=== PATIENT | male | born 1970 | race Caucasian/White ===

== ENCOUNTER → 2024-01-30 16:57 | Outpatient (REF) | payer BC, SELFPAY | LOC: RAD 16:57 | PROVIDERS: ATTENDING PHYSICIAN Surgery; FAMILY PHYSICIAN Internal Medicine | DX: N20.0 Calculus of kidney (principal) | CPT/HCPCS: 74176 ==

== ENCOUNTER 2024-06-03 14:17 | Emergency (ER) | payer BC, SELFPAY ==
[2024-06-03 14:25] VITALS: BP 191/135; BMI 36.0
--- NOTE | 2024-06-03 14:40 | EDRN ---
Dr. Villarreal in room w/ pt at this time.
--- NOTE | 2024-06-03 15:03 | ED.GENMED ---
History of Present Illness
General
Chief Complaint: Flank Pain
Source: patient
Exam Limitations: none
Time Seen by Provider: 06/03/24 14:39
History of Present Illness
History of Present Illness:
Left-sided flank pain x 3 days. History of kidney stones. Feels like a kidney stone. However it is not usually tender in the left lower quadrant. No fever chills no other infectious issues.
Past History
Past History
ED Past Medical History: HTN, Hypercholesterolemia and Other (kidney stones); Negative Arrthythmia, Asthma or CAD
ED Past Surgical History: Urological (lithrotripsy, ureteral stent July 2015)
Social History
Tobacco: Smoker
Alcohol: Occasional
Drug: None
Personal:
Living: with family
Employment: Employed
Family History
Family History: Hypertension and CAD; Negative Early CAD
Review of Systems
Review of Systems
All Other Systems: Not applicable
Constitutional: Denies fever or chills
: Denies dysuria or frequency
Phy Exam
Physical Exam
Physical Exam:
GENERAL: Alert and oriented in no apparent distress
EYE: Orbits normal.
NECK: Supple
CARDIAC: Regular rate and rhythm without any obvious murmurs.
LUNGS: Clear breath sounds,normal
ABDOMEN: Soft, mild tenderness left lower quadrant. No rebound or guarding no mass or hernia. No CVA tenderness
NEUROLOGICAL: Alert and oriented , grossly non-focal
SKIN: Warm and dry, no rash or lesion, no discoloration, skin intact.
MUSCULOSKELETAL: No edema,no deformity.Good color
PSYCH: Normal and appropriate interaction.
Course
Orders/Labs/Results
Orders:
Orders
06/03/24 14:50
IV Insert/Care/Rem.- Treatment PRN
0.9% Sodium Chloride 500 ml [Nss] 500 ml IV BOLUS
Ketorolac [Toradol] 15 mg IV NOW STA
06/03/24 14:51
HYDROmorphone [Dilaudid] 0.5 mg IV NOW STA
06/03/24 15:00
CT Abd/pel Without Iv Or Oral Urgent
Comment:
Reason For Exam: Left flank pain
06/03/24 15:03
Acetaminophen 1000MG/100Ml [Ofirmev] 1,000 mg in 100 ml IV ONCE
Acetaminophen IV Indication:: ED Narcotic Naive Pt-ONCE
06/03/24 15:16
Basic Metabolic Panel Urgent
Complete Blood Count/With Diff Urgent
06/03/24 15:33
Urinalysis Reflex To Culture Urgent
Date Specimen was Collected: 06/03/24
Time Specimen was Collected: 15:17
Urine Microscopic Reflex Cult Urgent
06/03/24 17:57
HYDROmorphone [Dilaudid] 0.5 mg IV NOW STA
06/03/24 17:58
CR Abdomen - 1 View Urgent
Comment:
Reason For Exam: Known mid ureteral stone
Abnormal Lab Results
06/03/24 06/03/24
15:16 15:33
MCH 31.7 H pg
(27.0-31.0)
MCHC 37.4 H g/dL
(33.0-37.0)
MPV 10.9 H fL
(7.4-10.4)
Abs Immat Gran (auto) 0.1 H 10^3/uL
(0-0.05)
Absolute Neuts (auto) 6.8 H 10^3/uL
(1.4-6.5)
Absolute Monos (auto) 0.7 H 10^3/uL
(0.1-0.6)
Immature Gran % 0.9 H %
(0-0.5)
Lymphocytes % 18.8 L %
(20.5-51.1)
Sodium 131 L mmol/L
(135-145)
BUN 21 H mg/dl
(9-20)
Glucose 326 H mg/dl
(70-99)
Ur Occult Blood Reflex 3+ A
(Negative)
Urine RBC >100 A /HPF
(0-2)
Urine Glucose 1+ A
(Negative)
06/03/24 15:16
06/03/24 15:16
Vital Signs
Initial and Last Documented VS:
Initial Vital Signs
Temp Pulse Resp BP Pulse Ox
97.9 F 82 16 191/135 96
06/03/24 14:25 06/03/24 14:25 06/03/24 14:25 06/03/24 14:25 06/03/24 14:25
Last Documented Vital Signs
Temp Pulse Resp BP Pulse Ox
97.9 F 58 16 183/101 97
06/03/24 14:25 06/03/24 18:00 06/03/24 18:00 06/03/24 18:23 06/03/24 18:00
*Radiology
Radiology exam reviewed: radiology read reviewed (Ongoing ectopic left adnexa) and other (1.2 cm obstructing stone with severe hydronephrosis)
*Pulse Oximetry
Patient hypoxic: no
*Critical Care Note
Total Time (30-74mins, 75-104mins- exclusive of procedures): Not Applicable
Update Note
Update Note:
Likely kidney stone however would consider diverticulitis. Workup in progress. Doubt infectious urologic issue
1825.... Patient is clinically stable and in no distress. Last blood pressure 183/101. No infectious symptoms. No fever no white count negative urinalysis for nitrate or leukocyte Estrace. CT report sent to urology. Patient is comfortable with
close outpatient follow-up. Urology is aware and will have him follow-up closely tomorrow. Patient will also be made of his blood sugar for follow-up
ED Attending Note
-
Portions of this chart may have been created with voice recognition software.� Occasional wrong word or��sound alike� substitutions may have occurred due to the inherent limitations of voice recognition software.
Discharge Plan
Departure
Patient Disposition: Home (Routine Discharge)
Date of Disposition: 06/03/24
Time of Disposition: 15:04
Patient with high blood pressure during this ER visit?: Yes
Discharge Problem:
1.2 cm left ureteral obstructing kidney
Instructions: Kidney Stones (DC), BLOOD PRESSURE
Prescriptions:
New
oxycodone-acetaminophen [Percocet] 5-325 mg tablet
1 tab PO Q4HPRN PRN (Reason: pain) Qty: 14 0RF
No Action
lisinopril 20 MG tablet
20 mg PO DAILY
allopurinol 100 MG tablet
100 mg PO BID
acetaminophen-codeine 300-30 mg Tablet
1 tab PO .SEE BELOW PRN (Reason: severe pain)
Patient Comments:
06/03/24: last filled 08/08/23 for 10 tablets at [facility]. Patient states he used an old bottle.
aspirin 81 mg Tablet,Delayed Release (Dr/Ec)
81 mg PO DAILY
ciclopirox 0.77 % Cream
1 applic TOPICAL BID
potassium citrate 15 mEq Tablet Extended Release
15 meq PO DAILY
Patient Comments:
06/03/24: patient states he is supposed to take it twice a day, but only does once a day in the morning.
Referrals:
Denise Ortega MD [Family Provider] -
Chase Barron MD [Active] - Tomorrow
Activity Restrictions/Additional Instructions:
Your prescription was sent to your pharmacy
As we discussed, call your urologist first thing tomorrow morning for very close follow-up
Also as discussed return with increasing or unremitting pain or any infectious symptoms
Interventions
Interventions:
*Risk Screen - Suicide Last Done: 06/03/24 14:25
*General Assessment Last Done: 06/03/24 15:20
*Neglect/Abuse Screening Last Done: 06/03/24 14:25
ED- Fall Risk Assessment Last Done: 06/03/24 14:25
*ED COVID-19 Vaccine History Last Done: 06/03/24 15:20
*Nursing Disposition Last Done: 06/03/24 18:44
LT-Ercwnb-Fqbiedgkth Assessment Last Done: 06/03/24 15:20
ED-Male Genitourinary Assessment Last Done: 06/03/24 15:20
Discharge Date and Time
Discharge Date/Time: 06/03/24 18:45
Print Language: [place]
[2024-06-03 15:20] VITALS: BP 197/100
[2024-06-03] MEDS: NSS 500 IV (15:25)
[2024-06-03] MEDS: DILAUDID 0.5 MG IV (15:26)
[2024-06-03] MEDS: TORADOL 15 MG IV (15:27)
[2024-06-03] MEDS: OFIRMEV 100 IV (15:28)
[2024-06-03 15:30] LABS: % Basophils 0.6 % (0-2); % Eosinophils 1.9 % (0-6); % Immature Granulocytes 0.9 % (0-0.5); % Lymphocytes 18.8 % (20.5-51.1); % Monocytes 7.2 % (1.7-9.3); % Neutrophils 70.6 % (42.2-75.2); Absolute Basophils 0.1 10^3/uL (0-0.2); Absolute Eosinophils 0.2 10^3/uL (0-0.7); Absolute Immature Granulocytes 0.1 10^3/uL (0-0.05); Absolute Lymphocytes 1.8 10^3/uL (1.2-3.4); Absolute Monocytes 0.7 10^3/uL (0.1-0.6); Absolute Neutrophils 6.8 10^3/uL (1.4-6.5); Hematocrit 40.4 % (39.0-52.0); Hemoglobin 15.1 g/dL (13.0-18.0); Mean Corp Hgb Conc. 37.4 g/dL (33.0-37.0); Mean Corpuscular Hgb 31.7 pg (27.0-31.0); Mean Corpuscular Volume 84.7 fL (80.0-94.0); Mean Platelet Volume 10.9 fL (7.4-10.4); Nucleated Red Blood Cells % 0 % (-); Platelet Count 148 10^3/uL (130-400); Red Blood Cell Count 4.77 10^6/uL (4.70-6.10); Red Cell Dist. Width 12.4 % (11.5-14.5); White Blood Cell Count 9.6 10^3/uL (4.8-10.8)
[2024-06-03 15:48] LABS: Blood Urea Nitrogen 21 mg/dl (9-20); Estimated Creatinine Clearance 90 ml/min; Glucose 326 mg/dl (70-99); eGFR > 60.00
[2024-06-03 15:49] LABS: Urine Albumin Trace (Neg - Trace); Urine Bilirubin Negative (Negative); Urine Character Clear (Clear); Urine Color Yellow; Urine Glucose 1+ (Negative); Urine Ketone Negative (Negative); Urine Leukocyte Negative (Negative); Urine Nitrite Negative (Negative); Urine Occult Blood 3+ (Negative); Urine Specific Gravity 1.015 (<1.030); Urine Urobilinogen Negative (Neg - 1+); Urine pH 6.5 (5.0-9.0)
[2024-06-03 15:49] LABS: Carbon Dioxide 26 mmol/L (22-30); Chloride 98 mmol/L (98-107); Sodium 131 mmol/L (135-145)
[2024-06-03 16:00] VITALS: BP 191/97
[2024-06-03 16:03] LABS: Urine Red Blood Cell >100 /HPF (0-2); Urine Squamous Cell >30 /LPF (Few); Urine White Cell 0-2 /HPF (0-5)
[2024-06-03 17:00] VITALS: BP 160/101
--- NOTE | 2024-06-03 17:51 | EDRN ---
Dr. Villarreal in room w /pt at this time.
[2024-06-03 18:00] VITALS: BP 174/93
[2024-06-03 18:23] VITALS: BP 183/101
--- NOTE | 2024-06-03 18:23 | EDRN ---
Pt declined pain med at this time. pain only 1/10 at this time.
== END 2024-06-03 18:45 | disposition home or self-care (01) ==
LOC: EMR 14:17
PROVIDERS: EMERGENCY PHYSICIAN Emergency Medicine; FAMILY PHYSICIAN Internal Medicine
DX: N13.2 Hydronephrosis with renal and ureteral calculous obstruction (principal); I10 Essential (primary) hypertension; F17.200 Nicotine dependence, unspecified, uncomplicated
CPT/HCPCS: 99285; 96374; 96375 ×2; 96361; 74018; 74176; 80048; 81003; 81015; 85025

== ENCOUNTER 2024-06-07 06:38 | Day surgery (SDC) | payer BC, SELFPAY ==
--- NOTE | 2024-06-05 14:01 | PTCARENOTE ---
Vangie @ Dr. Craven office and Dr. Apple notified of patients 326 glucose collected on 06/03- Per Dr. pAple glucose to be repeated day of surgery
[2024-06-07] VITALS (7 sets, daily range): BP systolic 107–178; BP diastolic 76–116; BMI 35.2
[2024-06-07 15:01] LABS: Glucose - Point of Care 199 mg/dl (70-99)
[2024-06-07] MEDS: NORMOSOL-R/PLASMALYTE-A 1000 IV (15:09)
[2024-06-07 17:09] LABS: Glucose - Point of Care 183 mg/dl (70-99)
[2024-06-07] MEDS: DETROL LA 4 MG PO (17:09)
[2024-06-07] MEDS: Pyridium 200 MG PO (17:09)
[2024-06-07] MEDS: NOVOLOG vial 1 UNITS SC (17:13)
== END 2024-06-07 18:08 | disposition home or self-care (01) ==
LOC: SDS 06:38
PROVIDERS: ATTENDING PHYSICIAN Surgery
DX: N13.2 Hydronephrosis with renal and ureteral calculous obstruction (principal)
CPT/HCPCS: 52356; 74018; 76000; 82962; 93005; C1769; C1894; C2617

== ENCOUNTER 2024-06-11 10:15 | Emergency (ER) | payer BC, SELFPAY ==
[2024-06-11 10:17] VITALS: BP 140/81
--- NOTE | 2024-06-11 11:13 | ED.GENMED ---
History of Present Illness
General
Chief Complaint: Abdominal Pain
Source: patient
Time Seen by Provider: 06/11/24 10:55
History of Present Illness
History of Present Illness:
54yoM with a history of hypertension, hyperlipidemia, and kidney stones presenting with his for evaluation of abdominal pain. He reports recurrent episodes of epigastric pain. The first episode occurred 3 days ago. The pain initially went away
after he belched and had a bowel movement so he thought his symptoms were related to gas. He has had additional episodes over the past few days which are severe and sudden in onset. Nothing in particular seems to trigger the symptoms. He pain lasts
about 20 minutes before resolving. The episodes seem to occur in the morning time and while in the shower. He had an episode of severe pain today while at work and decided to come to the ED. He is pain free currently. The episodes are associated
with nausea and diaphoresis. He denies any fevers, chest pain, shortness of breath, dysuria, heartburn. Of note, patient had a lithotripsy with ureteral stent placement 4 days ago.
Past History
Past History
ED Past Medical History: HTN, Hypercholesterolemia and Other (kidney stones); Negative Arrthythmia, Asthma or CAD
ED Past Surgical History: Urological (lithrotripsy, ureteral stent July 2015)
Social History
Tobacco: Smoker
Alcohol: Occasional
Drug: None
Personal:
Living: with family
Employment: Employed
Family History
Family History: Hypertension and CAD; Negative Early CAD
Phy Exam
General Physical Exam
General Presentation: well appearing and no apparent distress
General age: appears stated age
General Skin: warm and dry
General Habitus: normal
General Mental: alert
Cardiovascular Exam
Cardiovascular Exam: regular rate/rhythm, no edema and no murmur
Pulmonary Exam
Pulmonary Exam: lungs clear, no respiratory distress, no crackles and no wheezing
Gastrointestinal Exam
Gastrointestinal Exam: non tender, soft and non distended
Skin Exam
Skin Exam: normal color and warm/dry
Psychiatric Exam
Psychiatric Exam: normal mood/affect
Course
Orders/Labs/Results
Orders:
Orders
06/11/24 11:18
Electrocardiogram (*1) Urgent
Reason for Study: Abdominal Pain
EKG- Treatment ONCE
06/11/24 11:19
CT Abd/pelvis W Iv Cont Urgent
Comment:
Reason For Exam: Epigastric pain, recent ureteral stent placement
06/11/24 11:27
Complete Blood Count/With Diff Urgent
Comprehensive Metabolic Panel Urgent
Lipase Urgent
Troponin I Urgent
Abnormal Lab Results
06/11/24
11:27
WBC 12.2 H 10^3/uL
(4.8-10.8)
MCH 31.7 H pg
(27.0-31.0)
MPV 10.7 H fL
(7.4-10.4)
Abs Immat Gran (auto) 0.1 H 10^3/uL
(0-0.05)
Absolute Neuts (auto) 9.0 H 10^3/uL
(1.4-6.5)
Absolute Monos (auto) 0.7 H 10^3/uL
(0.1-0.6)
Immature Gran % 0.9 H %
(0-0.5)
Lymphocytes % 17.4 L %
(20.5-51.1)
Sodium 133 L mmol/L
(135-145)
BUN 21 H mg/dl
(9-20)
Creatinine 1.4 H mg/dL
(0.7-1.3)
Glucose 395 H mg/dl
(70-99)
ALT 60 H U/L
(0-50)
06/11/24 11:27
06/11/24 11:27
Vital Signs
Initial and Last Documented VS:
Initial Vital Signs
Temp Pulse Resp BP Pulse Ox
98.0 F 82 18 140/81 97
06/11/24 10:17 06/11/24 10:17 06/11/24 10:17 06/11/24 10:17 06/11/24 10:17
Last Documented Vital Signs
Temp Pulse Resp BP Pulse Ox
98.0 F 71 16 135/74 97
06/11/24 10:17 06/11/24 14:08 06/11/24 14:08 06/11/24 14:08 06/11/24 14:08
MDM/Problems Addressed
Differential Diagnosis Includes:
54yoM here with intermittent epigastric pain x 3 days. Lasts 20 minutes at a time. Associated with nausea and sweating. Hx of recent ureteral stent placement. He is pain free currently. He is afebrile and hemodynamically stable. He is well appearing
in no distress. Abdominal exam is benign. Differential diagnosis includes but is not limited to: gastritis, GERD, esophagitis, ACS
Initial ED plan: Check abdominal labs, troponin/EKG, and CT abdomen.
*EKG
Interpreted by ED Provider?: Yes
EKG Intrepretation Date: 06/11/24
Heart Rate: 69
Rate: normal
Rhythm: sinus
[place]: normal axis
Interval: normal interval
QRS Pattern: normal QRS
Ischemia: no ischemia
*Critical Care Note
Total Time (30-74mins, 75-104mins- exclusive of procedures): Not Applicable
Update Note
Update Note:
Labs reveal a WBC of 12.2 which is nonspecific. Creatinine 1.4 (1.3 last week). Glucose 395, bicarb is normal. He denies any prior hx of diabetes although glucose was also elevated in the 300s during his ED visit last week. CT abdominal is negative
for acute findings. Hydronephrosis improved after stent placement. On reassessment, he remains asymptomatic. No episodes of pain during ED stay. No indication for admission. Unclear etiology of pain. Advised close f/u with PCP and cardiology.
Patient and aware of hyperglycemia. ED return precautions discussed. He was discharged in stable condition.
ED Attending Note
-
Portions of this chart may have been created with voice recognition software.� Occasional wrong word or��sound alike� substitutions may have occurred due to the inherent limitations of voice recognition software.
Discharge Plan
Departure
Patient Disposition: Home (Routine Discharge)
Date of Disposition: 06/11/24
Time of Disposition: 14:31
Patient with high blood pressure during this ER visit?: No
Discharge Problem:
Epigastric pain, Hyperglycemia
Instructions: Chest Pain DCA Follow Up, Abdominal Pain
Prescriptions:
No Action
lisinopril 20 MG tablet
20 mg PO DAILY
allopurinol 100 MG tablet
100 mg PO BID
acetaminophen-codeine 300-30 mg Tablet
1 tab PO .SEE BELOW PRN (Reason: severe pain)
Patient Comments:
06/03/24: last filled 08/08/23 for 10 tablets at [facility]. Patient states he used an old bottle.
aspirin 81 mg Tablet,Delayed Release (Dr/Ec)
81 mg PO DAILY
potassium citrate 15 mEq Tablet Extended Release
15 meq PO DAILY
Patient Comments:
06/03/24: patient states he is supposed to take it twice a day, but only does once a day in the morning.
tamsulosin 0.4 mg Capsule
0.4 mg PO DAILY
diclofenac sodium 50 mg Tablet,Delayed Release (Dr/Ec)
50 mg PO TID
methylprednisolone [Methylpred] 4 mg Tablets,Dose Pack
4 mg PO DAILY
Rx Instructions:
TAPER
Referrals:
Johnathon Santos MD [Active] -
Denise Ortega MD [Family Provider] -
Activity Restrictions/Additional Instructions:
Please call today to schedule a follow-up with your family doctor in 1-2 days. You should also follow up with your city mail carrier.
Return to the ER with any new or worsening symptoms.
Interventions
Interventions:
*Risk Screen - Suicide Last Done: 06/11/24 10:19
*General Assessment Last Done: 06/11/24 10:19
*Neglect/Abuse Screening Last Done: 06/11/24 10:19
ED- Fall Risk Assessment Last Done: 06/11/24 14:47
*ED COVID-19 Vaccine History Last Done: 06/11/24 10:19
*Nursing Disposition Last Done: 06/11/24 14:47
SP-Smrshp-Dryahhklvo Assessment Last Done: 06/11/24 11:06
Discharge Date and Time
Discharge Date/Time: 06/11/24 14:48
Print Language: [place]GAND[place]
[2024-06-11 11:35] LABS: % Basophils 0.9 % (0-2); % Eosinophils 1.5 % (0-6); % Immature Granulocytes 0.9 % (0-0.5); % Lymphocytes 17.4 % (20.5-51.1); % Monocytes 5.3 % (1.7-9.3); Absolute Basophils 0.1 10^3/uL (0-0.2); Absolute Eosinophils 0.2 10^3/uL (0-0.7); Absolute Immature Granulocytes 0.1 10^3/uL (0-0.05); Absolute Lymphocytes 2.1 10^3/uL (1.2-3.4); Absolute Monocytes 0.7 10^3/uL (0.1-0.6); Hematocrit 46.7 % (39.0-52.0); Hemoglobin 17.2 g/dL (13.0-18.0); Mean Corp Hgb Conc. 36.8 g/dL (33.0-37.0); Mean Corpuscular Hgb 31.7 pg (27.0-31.0); Mean Platelet Volume 10.7 fL (7.4-10.4); Nucleated Red Blood Cells % 0 % (-); Platelet Count 201 10^3/uL (130-400); Red Blood Cell Count 5.43 10^6/uL (4.70-6.10); Red Cell Dist. Width 12.2 % (11.5-14.5); White Blood Cell Count 12.2 10^3/uL (4.8-10.8)
[2024-06-11 11:49] LABS: ALT (SGPT) 60 U/L (0-50); AST (SGOT) 46 U/L (17-59); Albumin 4.3 g/dl (3.5-5.0); Alkaline Phosphatase 121 U/L (38-126); Blood Urea Nitrogen 21 mg/dl (9-20); Calcium 9.7 mg/dl (8.4-10.2); Carbon Dioxide 23 mmol/L (22-30); Chloride 100 mmol/L (98-107); Glucose 395 mg/dl (70-99); Lipase 94 U/L (23-300); Potassium 4.8 mmol/L (3.5-5.1); Sodium 133 mmol/L (135-145); Total Bilirubin 1.2 mg/dl (0.2-1.3); Total Protein 6.8 g/dl (6.3-8.2); eGFR 58.99
[2024-06-11 12:04] VITALS: BP 138/79
[2024-06-11 12:45] LABS: Troponin I < 0.012 ng/ml
[2024-06-11 14:08] VITALS: BP 135/74
== END 2024-06-11 14:48 | disposition home or self-care (01) ==
LOC: EMR 10:15
PROVIDERS: Physician Assistant; EMERGENCY PHYSICIAN Emergency Medicine; FAMILY PHYSICIAN Internal Medicine
DX: R10.13 Epigastric pain (principal); R11.0 Nausea; R73.9 Hyperglycemia, unspecified; R61 Generalized hyperhidrosis; I10 Essential (primary) hypertension; E78.00 Pure hypercholesterolemia, unspecified; F17.200 Nicotine dependence, unspecified, uncomplicated; Z98.890 Other specified postprocedural states; Z87.442 Personal history of urinary calculi; Z79.82 Long term (current) use of aspirin
CPT/HCPCS: 99285; 74177; 80053; 83690; 84484; 85025; 93005; Q9967

== ENCOUNTER → 2024-06-26 06:33 | Outpatient (REF) | payer BC, SELFPAY ==
[2024-06-26 09:06] LABS: % Basophils 0.8 % (0-2); % Eosinophils 2.8 % (0-6); % Immature Granulocytes 0.4 % (0-0.5); % Lymphocytes 30.1 % (20.5-51.1); % Monocytes 6.7 % (1.7-9.3); % Neutrophils 59.2 % (42.2-75.2); Absolute Basophils 0.1 10^3/uL (0-0.2); Absolute Eosinophils 0.2 10^3/uL (0-0.7); Absolute Lymphocytes 2.2 10^3/uL (1.2-3.4); Absolute Monocytes 0.5 10^3/uL (0.1-0.6); Absolute Neutrophils 4.4 10^3/uL (1.4-6.5); Hematocrit 41.9 % (39.0-52.0); Hemoglobin 14.6 g/dL (13.0-18.0); Mean Corp Hgb Conc. 34.8 g/dL (33.0-37.0); Mean Corpuscular Hgb 31.9 pg (27.0-31.0); Mean Corpuscular Volume 91.7 fL (80.0-94.0); Mean Platelet Volume 10.6 fL (7.4-10.4); Nucleated Red Blood Cells % 0 % (-); Platelet Count 189 10^3/uL (130-400); Red Blood Cell Count 4.57 10^6/uL (4.70-6.10); Red Cell Dist. Width 12.3 % (11.5-14.5); White Blood Cell Count 7.4 10^3/uL (4.8-10.8)
[2024-06-26 09:13] LABS: ALT (SGPT) 54 U/L (0-50); AST (SGOT) 44 U/L (17-59); Albumin 4.4 g/dl (3.5-5.0); Alkaline Phosphatase 93 U/L (38-126); Blood Urea Nitrogen 23 mg/dl (9-20); Carbon Dioxide 27 mmol/L (22-30); Chloride 104 mmol/L (98-107); Glucose 152 mg/dl (70-99); HDL Cholesterol 32 mg/dl; LDL Cholesterol, Calculated 75 mg/dl; Potassium 4.9 mmol/L (3.5-5.1); Sodium 138 mmol/L (135-145); Total Bilirubin 1.1 mg/dl (0.2-1.3); Total Cholesterol 150 mg/dl (50-199); Total Protein 6.7 g/dl (6.3-8.2); Triglyceride 219 mg/dl (10-149); Very Low Density Lipoprotein 43 mg/dl (0-30); eGFR > 60.00
[2024-06-26 09:37] LABS: TSH 0.77 uIU/ml (0.47-4.68)
[2024-06-26 12:30] LABS: Glycohemoglobin (HgbA1c) 8.6 % (4.0-5.6)
[2024-06-28 01:05] LABS: PSA Total 0.9 ng/mL (0.0-4.0)
== END ==
LOC: HWLAB 06:33
PROVIDERS: ATTENDING PHYSICIAN Internal Medicine
DX: E11.65 Type 2 diabetes mellitus with hyperglycemia (principal); Z00.00 Encounter for general adult medical examination without abnormal findings; R53.83 Other fatigue; Z12.5 Encounter for screening for malignant neoplasm of prostate; E78.5 Hyperlipidemia, unspecified
CPT/HCPCS: 36415; 80053; 80061; 83036; 84153; 84154; 84443; 85025

== ENCOUNTER → 2024-09-17 07:11 | Outpatient (REF) | payer BC, SELFPAY ==
--- NOTE | 2024-09-17 09:23 | CARDSERVLU ---
Echocardiogram with Lumason completed after protocol screening completed. Allergies verified.
Patent IV site: ____Right hand_
IV site flushed with 0.9% NaCl pre and post administration.
Diluted bolus method utilized to enhance visualization of ventricular younger.
Total volume given: __5__ mL
Patient tolerated all procedures well without complications.
== END ==
LOC: HWRCS 07:11
PROVIDERS: ATTENDING PHYSICIAN Internal Medicine Cardiovascular Disease; FAMILY PHYSICIAN Internal Medicine
DX: I77.810 Thoracic aortic ectasia (principal)
CPT/HCPCS: 93306; Q9950

== ENCOUNTER → 2024-11-20 06:39 | Outpatient (REF) | payer OTHER, SELFPAY ==
[2024-11-20 10:15] LABS: HDL Cholesterol 35 mg/dl; LDL Cholesterol, Calculated 87 mg/dl; Total Cholesterol 163 mg/dl (50-199); Triglyceride 209 mg/dl (10-149); Very Low Density Lipoprotein 41 mg/dl (0-30)
[2024-11-20 11:32] LABS: Glycohemoglobin (HgbA1c) 5.9 % (4.0-5.6)
== END ==
LOC: HWLAB 06:39
PROVIDERS: ATTENDING PHYSICIAN Internal Medicine
DX: E11.9 Type 2 diabetes mellitus without complications (principal)
CPT/HCPCS: 36415; 80061; 83036

== ENCOUNTER → 2025-09-12 08:14 | Outpatient (REF) | payer OTHER, SELFPAY | LOC: HWRAD 08:14 | PROVIDERS: ATTENDING PHYSICIAN Surgery; FAMILY PHYSICIAN Internal Medicine | DX: N20.0 Calculus of kidney (principal) | CPT/HCPCS: 74176 ==

== ENCOUNTER 2025-10-09 08:43 | Emergency (ER) | payer OTHER, SELFPAY ==
[2025-10-09] VITALS (11 sets, daily range): BP systolic 148–235; BP diastolic 87–201; BMI 36.0
--- NOTE | 2025-10-09 09:38 | ED.GENMED ---
History of Present Illness
General
Chief Complaint: Chest Pain
Source: patient
Exam Limitations: none
Time Seen by Provider: 10/09/25 09:37
Nursing documentation reviewed up to this point in time: agreed with
History of Present Illness
History of Present Illness:
55yo male w h/o HTN, NIDDM, Gout presents for high blood pressure and intermittent chest pains with exertion past 3 weeks. Sent here from Dr. Santos's office for high BP.
Discovered high BP 160/110, during out pt CT scan to check for kidney stones 3 weeks ago
Had PE for a new job 7 days ago and BP was 165/115
Notified his Senior National Account Manager Dr. Santos and instructed to buy BP cuff and his has monitored his BP daily since and it has remained very high.
He has had chest pain with exertion and lightheadedness such as going up stairs since.
Denies CP at this time.
Denies headaches or change in vision
Denies n/v/d/c.
Takes his Lisinopril 10 mg every day.
Other meds: Metformin, Baby asa, Allopurinol, K Citrate
Past History
Past History
ED Past Medical History: HTN, Hypercholesterolemia and Other (kidney stones); Negative Arrthythmia, Asthma or CAD
ED Past Surgical History: Urological (lithrotripsy, ureteral stent July 2015)
Social History
Tobacco: Former smoker
Alcohol: Occasional
Drug: None
Personal:
Living: with family
Employment: Employed
Family History
Family History: Hypertension and CAD; Negative Early CAD
Review of Systems
Review of Systems
Allergies reviewed?: Yes
All Other Systems: ROS reviewed and negative except as documented in HPI and ROS
Constitutional: Denies fever or fatigue
Respiratory: Denies trouble breathing
Cardiac: Reports chest pain; Denies diaphoresis, palpitations or syncope
ABD/GI: Denies abdominal pain, nausea or vomiting
Musculoskeletal: Reports no symptoms
Skin: Reports no symptoms
Neurological: Denies dizzy, headache, weakness or numbness
Phy Exam
Physical Exam
Physical Exam:
GENERAL: No acute distress. A&Ox3.
CONSTITUTIONAL: Afebrile.
EYES: clear, conjunctivae normal
ENMT: moist mucus membranes, Pharynx nl
RESPIRATORY: Regular respirations, nonlabored, lungs clear.
CARDIOVASCULAR: Regular rate and rhythm, no murmurs, no rubs.
GI: Soft, nontender, normal BS
MUSCULOSKELETAL: Moves with ease. Well perfused.
SKIN: Warm, dry, pink
PSYCH: Normal mood and affect. Well kept, interactive and appropriate
NEUROLOGIC: Awake, alert and oriented. No focal neurological deficits.
Scores
Heart Score for Chest Pain Patients
STEMI patient?: Not applicable
Course
Orders/Labs/Results
Orders:
Orders
10/09/25 08:44
Electrocardiogram (*1) Urgent
Reason for Study: Chest Pain
EKG- Treatment ONCE
10/09/25 09:48
HydrALAZINE [Apresoline] 10 mg IV NOW STA
10/09/25 09:49
Complete Blood Count/With Diff Urgent
Comprehensive Metabolic Panel Urgent
PTT Urgent
Prothrombin Time Urgent
Troponin I Urgent
10/09/25 12:20
Troponin I Urgent
Abnormal Lab Results
10/09/25
09:49
MPV 11.3 H fL
(7.4-10.4)
Abs Immat Gran (auto) 0.1 H 10^3/uL
(0-0.05)
Absolute Monos (auto) 0.7 H 10^3/uL
(0.1-0.6)
Immature Gran % 0.7 H %
(0-0.5)
Carbon Dioxide 31 H mmol/L
(22-30)
Glucose 119 H mg/dl
(70-99)
ALT 57 H U/L
(0-50)
10/09/25 09:49
10/09/25 09:49
Vital Signs
Initial and Last Documented VS:
Initial Vital Signs
Temp Pulse Resp BP Pulse Ox
97.8 F 60 20 235/124 97
10/09/25 08:48 10/09/25 08:48 10/09/25 08:48 10/09/25 08:48 10/09/25 08:48
Last Documented Vital Signs
Temp Pulse Resp BP Pulse Ox
97.8 F 70 24 164/89 97
10/09/25 08:48 10/09/25 13:15 10/09/25 13:15 10/09/25 13:00 10/09/25 13:15
Multimedia Editor consulted with Physician
Multimedia Editor consulted with physician?: Yes
Name of Physician Consulted: Barrera
MDM/Problems Addressed
Differential Diagnosis Includes:
Unstable angina, Hypertensive urgency/emergency, CA
MDM/Problems Addressed:
55yo male w h/o HTN, NIDDM, Gout presents for high blood pressure and intermittent chest pains with exertion past 3 weeks. Sent here from Dr. Santos's office for high BP.
Discovered high BP 160/110, during out pt CT scan to check for kidney stones 3 weeks ago
Had PE for a new job 7 days ago and BP was 165/115
Notified his Senior National Account Manager Dr. Lan and instructed to buy BP cuff and his has monitored his BP daily since and it has remained very high.
He has had chest pain with exertion and lightheadedness such as going up stairs since.
Denies CP at this time. Denies headaches or change in vision. Denies n/v/d/c.
EKG: NSR
CBC normal
CMP normal
Troponin 0.034
10:45 a.m.
After IV Hydralazine BP 170/90
Repeat troponin pending
12:30 p.m.
BP 169/100
1:00 p.m.
Troponin #2 0.030
BP 164/[address] Barrett who recommends add Toprol 25 daily and increase Lisinopril to 40 daily
Rx sent to his pharmacy. He is comfortable with this plan
*Pulse Oximetry
SaO2: 97
Oxygen Mode of Delivery: Room air
Patient hypoxic: no
*EKG
EKG Intrepretation Date: 10/09/25
Interpretation: normal
Heart Rate: 61
Rate: normal
Rhythm: sinus
[place]: normal axis
Interval: normal interval
QRS Pattern: normal QRS
Ischemia: no ischemia
*Critical Care Note
Total Time (30-74mins, 75-104mins- exclusive of procedures): Not Applicable
ED Attending Note
-
Portions of this chart may have been created with voice recognition software.� Occasional wrong word or��sound alike� substitutions may have occurred due to the inherent limitations of voice recognition software.
Discharge Plan
Departure
Patient Disposition: Home (Routine Discharge)
Date of Disposition: 10/09/25
Time of Disposition: 13:20
Patient with high blood pressure during this ER visit?: Yes
Condition: Good
Discharge Problem:
Hypertensive urgency, Chest pain
Instructions: High blood pressure emergencies, Chest pain (DC)
Prescriptions:
New
metoprolol succinate [Toprol XL] 25 mg tablet extended release 24 hr
25 mg PO DAILY Qty: 30 0RF
lisinopril 40 mg tablet
40 mg PO DAILY Qty: 30 0RF
No Action
lisinopril 20 MG tablet
20 mg PO DAILY
allopurinol 100 MG tablet
100 mg PO BID
acetaminophen-codeine 300-30 mg Tablet
1 tab PO .SEE BELOW PRN (Reason: severe pain)
Patient Comments:
06/03/24: last filled 08/08/23 for [address] [facility]. Patient states he used an old bottle.
aspirin 81 mg Tablet,Delayed Release (Dr/Ec)
81 mg PO DAILY
potassium citrate 15 mEq Tablet Extended Release
15 meq PO DAILY
Patient Comments:
06/03/24: patient states he is supposed to take it twice a day, but only does once a day in the morning.
tamsulosin 0.4 mg Capsule
0.4 mg PO DAILY
diclofenac sodium 50 mg Tablet,Delayed Release (Dr/Ec)
50 mg PO TID
methylprednisolone [Methylpred] 4 mg Tablets,Dose Pack
4 mg PO DAILY
Rx Instructions:
TAPER
Referrals:
Denise Ortega MD [Family Provider, Internal Medicine]
Activity Restrictions/Additional Instructions:
As we discussed, I sent a prescription to your pharmacy for Toprol 25 mg to take daily. Also for Lisinopril 40 mg.
Call and make follow up appointment with Dr. Santos in 1-2 weeks. Monitor your BP at home and inform Dr. Leyva if persistently higher than 140/90.
Retrun here immediately for worsening chest pain or feeling sicker in any way
Interventions
Interventions:
*Risk Screen - Suicide Last Done: 10/09/25 08:48
*General Assessment Last Done: 10/09/25 10:12
*Neglect/Abuse Screening Last Done: 10/09/25 10:12
*ED COVID-19 Vaccine History Last Done: 10/09/25 08:48
*ED Influenza Vaccine History Last Done: 10/09/25 08:48
[facility] Fall Risk Assessment Tool Last Done: 10/09/25 08:43
*Nursing Disposition Last Done: 10/09/25 13:26
ED- Cardiac Assessment Last Done: 10/09/25 10:12
Discharge Date and Time
Discharge Date/Time: 10/09/25 13:36
Print Language: MONGOL[place]
[2025-10-09] MEDS: APRESOLINE 10 MG IV (09:51)
[2025-10-09 09:55] LABS: Hematocrit 48.0 % (39.0-52.0); Hemoglobin 16.4 g/dL (13.0-18.0); Mean Corp Hgb Conc. 34.2 g/dL (33.0-37.0); Mean Corpuscular Volume 87.8 fL (80.0-94.0); Nucleated Red Blood Cells % 0 % (-); Platelet Count 164 10^3/uL (130-400); Red Cell Dist. Width 12.7 % (11.5-14.5)
[2025-10-09 10:04] LABS: APTT 28.8 Sec (23.4-35.0); INR 1.08; PT 13.8 Sec (11.4-14.6)
[2025-10-09 10:30] LABS: ALT (SGPT) 57 U/L (0-50); AST (SGOT) 43 U/L (17-59); Albumin 4.7 g/dl (3.5-5.0); Alkaline Phosphatase 79 U/L (38-126); Blood Urea Nitrogen 18 mg/dl (9-20); Calcium 9.9 mg/dl (8.4-10.2); Carbon Dioxide 31 mmol/L (22-30); Chloride 106 mmol/L (98-107); Estimated Creatinine Clearance 105 ml/min; Glucose 119 mg/dl (70-99); Potassium 4.2 mmol/L (3.5-5.1); Sodium 141 mmol/L (135-145); Total Protein 7.7 g/dl (6.3-8.2); Troponin I 0.032 ng/ml; eGFR > 60.00
[2025-10-09 12:53] LABS: Troponin I 0.031 ng/ml
== END 2025-10-09 13:36 | disposition home or self-care (01) ==
LOC: EMR 08:43
PROVIDERS: Registered Nurse; EMERGENCY PHYSICIAN Emergency Medicine; FAMILY PHYSICIAN Internal Medicine
DX: I16.0 Hypertensive urgency (principal); R07.9 Chest pain, unspecified; E11.9 Type 2 diabetes mellitus without complications; E78.00 Pure hypercholesterolemia, unspecified; Z79.899 Other long term (current) drug therapy; Z87.891 Personal history of nicotine dependence
CPT/HCPCS: 96374; 99284; 80053; 84484; 85025; 85610; 85730; 93005

== ENCOUNTER 2025-10-21 12:48 | Inpatient (IN) | payer OTHER, SELFPAY ==
[2025-10-21] VITALS (19 sets, daily range): BP systolic 64–197; BP diastolic 53–123; BMI 36.3; BMI 36.0
--- NOTE | 2025-10-21 07:43 | ED.GENMED ---
History of Present Illness
General
Chief Complaint: Chest Pain
Source: patient, records and spouse
Exam Limitations: none
Time Seen by Provider: 10/21/25 07:26
Nursing documentation reviewed up to this point in time: agreed with
History of Present Illness
History of Present Illness:
55-year-old male with past medical history of diabetes, hypertension who presents to the emergency department for evaluation of chest pain in the setting of recent hypertension. Patient reports that his chest pains have been intermittent for the
past 10 days�he describes exertional chest pain for example walking up the stairs that usually last for a minute or 2 and resolves with rest. He says that this morning shortly after waking up he had abrupt onset chest pain that started at rest (he
actually says he was gently stretching his back after waking up) and has been constant and more severe since onset. He says he has a sharp pain 'like a hot knife' that radiates through to his back. No clear triggering or relieving factors noted.
He denies any associated shortness of breath. Denies any nausea, vomiting, diaphoresis. Denies abdominal pain. He does feel mildly dizzy. No recent swelling or pain in the legs. He denies any known cardiac history he has seen Dr. Santos in
the past for hypertension; he says that he had stress test in the distant past that was reportedly reassuring but not recently. He makes note that he has had issues with high blood pressure recently�he says that it was noted to be elevated despite
his normal lisinopril when he had an exam as part of a workplace physical. He says that he followed up with his primary doctor and his blood pressure had actually increased further to over 200 systolic and so he was sent to the ER here 10/09 and at
that time lisinopril was increased and he was started on metoprolol. Despite these measures blood pressures have still remained severely elevated at home.
Past History
Past History
ED Past Medical History: HTN, Hypercholesterolemia and Other (kidney stones); Negative Arrthythmia, Asthma or CAD
ED Past Surgical History: Urological (lithrotripsy, ureteral stent July 2015)
Social History
Tobacco: Former smoker
Alcohol: Occasional
Drug: None
Personal:
Living: with family
Employment: Employed
Family History
Family History: Hypertension and CAD; Negative Early CAD
Review of Systems
Review of Systems
All Other Systems: ROS reviewed and negative except as documented in HPI and ROS
Constitutional: Denies fever or chills
Respiratory: Denies cough or trouble breathing
Cardiac: Reports chest pain and palpitations; Denies diaphoresis
ABD/GI: Denies abdominal pain, nausea, vomiting or diarrhea
: Denies flank pain
Musculoskeletal: Denies edema, neck pain or back pain
Neurological: Reports dizzy; Denies headache
Phy Exam
Physical Exam
Physical Exam:
General: Awake, alert, oriented x3; mildly anxious appearing
Head: Normocephalic, atraumatic
Eyes: Conjunctiva normal, sclera anicteric
Throat: Airway intact, handling secretions
Neck: Trachea midline, no JVD
Lungs: Clear to auscultation bilaterally, no wheezing, rales, rhonchi
Heart: Tachycardia with irregularly irregular rhythm, no murmurs, gallops, or rubs
Abd: Soft, non distended, nontender
Neuro: Grossly intact
Skin: Warm and dry
Extremities: No edema in extremities, equal pulses in all extremities bilaterally
Scores
Heart Failure Risk
Heart Failure Risk Score: Not Applicable
Heart Score for Chest Pain Patients
STEMI patient?: No
History: Moderately Suspicious
ECG: Nonspecific Repolarization
Age: >45 - <65 years
Risk Factors: >/= 3 Risk Factors or History of CAD
Troponin: </= Normal Limit
Heart Score for Chest Pain Patients: 5
Heart Score Risk: 20.3% MACE over next 6 weeks
Withdrawal Assessment of Alcohol
Withdrawal Assessment Completed?: Not applicable
Course
Orders/Labs/Results
Orders:
Orders
10/21/25 07:06
Electrocardiogram (*1) Urgent
Reason for Study: Chest Pain
EKG- Treatment ONCE
10/21/25 07:39
Complete Blood Count/With Diff Urgent
Comprehensive Metabolic Panel Urgent
Troponin I Urgent
10/21/25 07:40
CT Chest/abd/pelvis Angio W/wo Urgent
Comment:
Reason For Exam: acute onset severe CP rad to back, severe HTN
Labetalol HCl [Trandate] 10 mg IV NOW STA
Morphine Sulfate 4 mg IV NOW STA
10/21/25 08:22
Electrocardiogram (*1) Urgent
Reason for Study: Tachycardia
EKG- Treatment ONCE
10/21/25 08:24
Type+Screen Urgent
PTT Urgent
Prothrombin Time Urgent
10/21/25 08:31
CARDIOLOGY CONSULT Urgent
Consulting Provider: Pavel Zamarripa
Was physician already notified: Yes
10/21/25 08:57
Electrocardiogram (*1) Urgent
Reason for Study: Chest Pain
EKG- Treatment ONCE
10/21/25 09:34
Troponin I Urgent
10/21/25 09:41
Echo 2D MMode Color/Doppler Routine
Reason for Study: Chest pain, New afib
10/21/25 09:50
Heparin 4,000 units IV NOW STA
Pharmacy Request to Place See Dose Instructions PO NOW STA
Discontinue all Active Warfarin orders?: Yes
10/21/25 09:[address] Non Medication Order As Directed
Physician Order: PTT 6 hours after initial start of Heparin infusion
10/21/25 09:52
Aspirin Chewable [Low Strength Aspirin] 324 mg PO NOW STA
10/21/25 10:00
Heparin 02133 Units/250 ml 25,000 units in 250 ml IV PER PROTOCOL
Weight to be used for heparin protocol in kilograms (kg):: 128
Protocol:: Cardiac Tx/Acute Coronary
PTT Goal Range to be used:: PTT 73 to 111 seconds
Order type:: Initial
INITIAL Infusion Dose (UNITS/KG/hr) & then follow protocol:: 12 units/kg/hr
Infusion Dose in UNITS/hr & then follow protocol (UNITS/hr):: 1,000
INFUSION RATE in mL/hr & then follow protocol (mL/hr):: 10
PTT less than or equal to 64 seconds:: Increase rate by 200 units/hr (+ 2 mL/hr)
PTT 64.1 to 72.9 seconds:: Increase rate by 100 units/hr (+ 1 mL/hr)
PTT 73 to 111 seconds:: Target Range. No change in rate.
PTT 111.1 to 130.9 seconds:: Decrease rate by 100 units/hr (- 1 mL/hr)
PTT 131 to 199.9 seconds:: HOLD for 1 hr. Then decrease rate by 200 units/hr (- 2 mL/hr)
PTT greater than or equal to 200 seconds:: HOLD for 2 hrs & Notify Provider. Then decrease by 200 units/hr (-
2 mL/hr)
Lab follow-up:: Each change, PTT q6h until 2 consecutive are therapeutic. Then PTT
daily.
Pharmacy Request to Place See Dose Instructions IV DIRECTED
Abnormal Lab Results
10/21/25
07:39
MPV 11.1 H fL
(7.4-10.4)
Abs Immat Gran (auto) 0.1 H 10^3/uL
(0-0.05)
Immature Gran % 0.6 H %
(0-0.5)
Glucose 221 H mg/dl
(70-99)
ALT 52 H U/L
(0-50)
10/21/25 07:39
10/21/25 07:39
Vital Signs
Initial and Last Documented VS:
Initial Vital Signs
Temp Pulse Resp Pulse Ox
36.3 C 68 16 98
10/21/25 07:10 10/21/25 07:10 10/21/25 07:10 10/21/25 07:10
Last Documented Vital Signs
Temp Pulse Resp BP Pulse Ox
36.3 C 68 11 95/63 97
10/21/25 07:10 10/21/25 09:30 10/21/25 07:30 10/21/25 09:00 10/21/25 09:15
MDM/Problems Addressed
Differential Diagnosis Includes:
Aortic dissection, ACS, hypertensive crisis, GERD, PE, pneumothorax, pneumonia
MDM/Problems Addressed:
55-year-old male presents for evaluation of chest pain�exertional and intermittent for the past 10 days now constant and severe chest pain at rest. Symptoms associated with recent severe hypertension despite adjustment of outpatient medications
recently. Blood pressure here 190/120 during my assessment, heart rate in 120s A-fib on the monitor. No hypoxia or tachypnea, no fever. Physical exam otherwise as noted. His EKG shows A-fib with RVR with some nonspecific changes�this will be a
new diagnosis for him. Plan to check labs including CBC to CMP, troponin. Given his report of abrupt onset symptoms, tearing pain through the back and severe hypertension he should be ruled out for aortic dissection will send for CT chest. Will
treat pain. Labetalol to start for hypertension and heart rate�may need additional rate control. Monitor very closely reassess at the above. Anticipate admission.
Labs reviewed: CBC no clinically significant abnormalities, CMP does show some hyperglycemia but no DKA, no history of diabetes. Initial troponin negative will need to repeat. On clinical reassessment thankfully patient has converted to sinus
rhythm on his own. Blood pressure improved to 150s over 90s currently. He did not receive labetalol�converted to sinus rhythm and blood pressure improved prior to this and so labetalol held. He did receive morphine for pain, patient much more
comfortable after morphine. Awaiting results of imaging.
I was called to the room because the patient was having increased lightheadedness. On the monitor her heart rate decreasing down into the low 40s appears sinus on the monitor. Blood pressure 60s over 30s. He was laid flat, second IV placed. IV
fluid bolus given. He was given 1 mg of IV atropine. Vital signs improved, symptoms improved continue to monitor�may have been episode of increased vagal tone/vasovagal. Repeat EKG shows junctional rhythm with AV block. Discussed with cardiology
for consultation. Continue to monitor very closely.
CT reviewed by me no clear dissection although final radiology report pending. His vital signs have stabilized. Will give aspirin with concern for unstable angina will also start heparin infusion for possible unstable angina as well as new onset
A-fib. Cardiology assessing at bedside. At this point will plan for admission�discussed case with hospitalist.
Chronic conditions affecting care:
Hypertension, obesity
Acute Exacerbation and/or Progression of Chronic Illness:
Acutely hypertensive managed as above
Acute atrial fibrillation with rapid ventricular response managed as above
Acute Exacerbation and/or Progression of Chronic Illness: HTN
*Radiology
Radiology exam reviewed: radiology read reviewed
*Pulse Oximetry
SaO2: 98
Oxygen Mode of Delivery: Room air
Patient hypoxic: no (98%)
*EKG
Interpreted by ED Provider?: Yes
Heart Rate: 125
Rate: tachycardiac
Rhythm: a-fib
[place]: left axis deviation
Interval: normal interval
QRS Pattern: normal QRS
Ischemia: non-specific ST changes
*Critical Care Note
Total Time (30-74mins, 75-104mins- exclusive of procedures): 33
comment:
Critical care statement: A total of 33 minutes of critical care time was provided for this patient. This includes management of unstable vital signs, evaluation of the patient at bedside, frequent reassessment, discussion with
consultants/hospitalist, and review of pertinent medical records. This time was separate from time utilized to perform any aforementioned documented procedures
Data Reviewed
Review of Other/Old Records Reveals: Labs and Records
Source: patient and spouse
ED Attending Note
-
Portions of this chart may have been created with voice recognition software.� Occasional wrong word or��sound alike� substitutions may have occurred due to the inherent limitations of voice recognition software.
Discharge Plan
Departure
Patient Disposition: Admit
Date of Disposition: 10/21/25
Time of Disposition: 09:53
Admit to doctor: Dandy
Presentation/result/management discussed w/ accepting MD/DO: Hospitalist
Discharge Problem:
Chest pain, Hypertension, New onset a-fib, AV block
Prescriptions:
No Action
allopurinol 100 MG tablet
100 mg PO DAILY
aspirin 81 mg Tablet,Delayed Release (Dr/Ec)
162 mg PO DAILYPRN PRN (Reason: chest pain)
potassium citrate 15 mEq Tablet Extended Release
15 meq PO DAILY
metoprolol succinate [Toprol XL] 25 mg tablet extended release 24 hr
25 mg PO DAILY Qty: 30 0RF
lisinopril 40 mg tablet
40 mg PO DAILY Qty: 30 0RF
metformin 500 mg Tablet
500 mg PO BID
naproxen sodium [Aleve] 220 mg Tablet
220 mg PO [id number] PRN (Reason: mild pain)
aspirin 81 mg Tablet
81 mg PO DAILY
Referrals:
Robert Edwards MD [Family Provider, Internal Medicine]
Interventions
Interventions:
*Risk Screen - Suicide Last Done: 10/21/25 07:12
*General Assessment Last Done: 10/21/25 07:34
*Neglect/Abuse Screening Last Done: 10/21/25 07:12
*ED COVID-19 Vaccine History Last Done: 10/21/25 07:34
*ED Influenza Vaccine History Last Done: 10/21/25 07:34
[facility] Fall Risk Assessment Tool Last Done: 10/21/25 07:34
ED- Cardiac Assessment Last Done: 10/21/25 07:34
Discharge Date and Time
Print Language: ALBANIAN
[2025-10-21 07:56] LABS: Hematocrit 51.6 % (39.0-52.0); Hemoglobin 17.7 g/dL (13.0-18.0); Mean Corp Hgb Conc. 34.3 g/dL (33.0-37.0); Mean Corpuscular Volume 87.5 fL (80.0-94.0); Nucleated Red Blood Cells % 0 % (-); Platelet Count 193 10^3/uL (130-400); Red Cell Dist. Width 12.4 % (11.5-14.5)
[2025-10-21] MEDS: MORPHINE SULFATE 4 MG IV (08:14)
[2025-10-21 08:19] LABS: ALT (SGPT) 52 U/L (0-50); AST (SGOT) 40 U/L (17-59); Albumin 4.8 g/dl (3.5-5.0); Alkaline Phosphatase 97 U/L (38-126); Blood Urea Nitrogen 18 mg/dl (9-20); Calcium 9.8 mg/dl (8.4-10.2); Carbon Dioxide 26 mmol/L (22-30); Chloride 106 mmol/L (98-107); Estimated Creatinine Clearance > 125 ml/min; Glucose 221 mg/dl (70-99); Potassium 4.0 mmol/L (3.5-5.1); Sodium 141 mmol/L (135-145); Total Protein 7.9 g/dl (6.3-8.2); eGFR > 60.00
[2025-10-21 08:21] LABS: Troponin I 0.029 ng/ml
[2025-10-21 08:55] LABS: INR 1.00; PT 13.3 Sec (11.4-14.6)
[2025-10-21 08:56] LABS: APTT 29.2 Sec (23.4-35.0)
--- NOTE | 2025-10-21 09:43 | CON.CAR ---
Addendum entered and electronically signed by Pavel Zamarripa MD 10/21/25 11:37:
55-year-old male who presented to the emergency department this morning with chest discomfort atrial fibrillation/flutter with rapid response associated with marked hypertension, subsequently converted to sinus rhythm/junctional bradycardia
spontaneously without invention. No acute ST segment changes, initial troponin 0.029. He was seen in the emergency department October 09 sent from our office with chest pain and accelerated hypertension, troponin 0.034. At that point, lisinopril
was increased from 10 mg to 40 mg and metoprolol succinate 25 mg daily was added patient treated with aspirin, diclofenac and prednisolone. SBM1II3-SRMn score is 2 for hypertension and diabetes. He is reliably having chest discomfort with exertion
with ringing in his ears, for example 1 flight of stairs with a laundry basket. Not much shortness of breath, periodically diaphoretic. He was aware of fluttering in his chest this morning. He has had prior episodes and suspects he has had atrial
fibrillation in the past. denies sleep apnea.
PMH: Hypertension, hyperlipidemia lithotripsy renal stent 2024,
SH: Smoker, occasional alcohol
Rest of history as below, unless otherwise specified
Initially 197/123 blood pressure as low as 84/62, obese, pleasant, head neck exam notable for possible proptosis, and neck exam unremarkable, lungs clear, cardiac regular rate and rhythm without obvious murmurs abdomen benign extremities without
clubbing cyanosis or edema distal pulses intact
EKG A-fib with RVR, nonspecific ST and T changes
ECG #2: Sinus bradycardia/junctional, nonspecific ST-T changes marked sinus bradycardia with competing pacemaker
CTA of abdomen/pelvis/chest: Hepatomegaly, fatty infiltration, mild abdominal aortic atherosclerosis, no aneurysm, absent gallbladder,, COPD, thyroid nodule 1.7 cm
Impression:
Accelerated/malignant hypertension
Possible ACS with troponin 0.43
Paroxysmal atrial fibrillation, newly diagnosed, [id number] score 2
Obesity
Hypertension
MAFLD
Aortic atherosclerosis
Gout type 2 diabetes
Hyperlipidemia
Plan:
He presents with accelerated/malignant hypertension but also has exertional angina with minimal exertion in a crescendo pattern. Furthermore he has had paroxysmal atrial fibrillation with a ODQ3AT5-CKRc score of 2.
It could be that chest discomfort and detectable troponin is all related to malignant hypertension, but possibility of a true ACS is also fairly high.
Agree with heparinization, continue aspirin, proceed to [employer] in AM.
Ultimately probably should be on anticoagulation for paroxysmal A-fib with a [id number]-VBFi score of 2.
Given labile hypertension, and proptosis check TSH. May also be useful to check metanephrines.
Avoid beta-cristóbal given junctional rhythm.
Continue LIN inhibitor, would favor use of amlodipine and probable thiazide diuretic.
We will continue to follow.
Original Note:
Consultation
Consultation Request
Date/Time Consultation Requested: 10/21/2025
Date/Time Consultation Performed: 10/21/2025
Requesting Provider: Dr. Rust
Performing Provider: Alma Ward PA-C for Dr. WALTER Zamarripa
Reason for Consultation: Chest pain, new afib
Medical History
-
History of Present Illness:
HPI: Robert is a 55 year old male with PMH of uncontrolled HTN, HLD, DM2, former tobacco abuse, and dilated aortic root. Presented to [facility] ER for evaluation of chest pain and significantly elevated BP. He was recently seen in the cardiology office
on 10/09/2025 for elevated BPs and chest pain. In office, was markedly hypertensive with BP 250/120 and admitted to chest pain while walking into office, so was sent to ER. He was evaluated and had troponin within the normal range x2 and BP improved
after medication, so he was started on higher dose lisinopril 40mg daily and metoprolol succinate 25mg daily. He states since that time, he has continued w/ exertional chest discomfort and blood pressures have remained elevated. Yesterday he did
some snow blowing, but did not feel he over exerted himself. When he woke up this AM, he noticed fairly significant chest pain while at rest with radiation into his back as well as shortness of breath, diaphoresis, and dizziness. He checked his BP
and it was significantly elevated at 254/168 and pain continued to worsen over 20 minutes, prompting ER evaluation. Also noted feeling 'weird' heart rhythm and came to ER for evaluation. On arrival, noted to be in rapid atrial fibrillation which was
a new diagnosis. Given ongoing severe chest pain, he was given morphine and his pain has since subsided. Pain free at this time. Noted to be hypoxic in ER with pulse ox 88% and he was placed on 2L NC. Initial troponin within normal range but
detectable at 0.029. He converted to SR and remains in SR at this time.
PMH:
HTN, uncontrolled
Dilated aortic root
HLD
DM2
Former tobacco abuse
Past Medical History
Past Medical History: Other (In HPI)
Past Surgical History: Cholecystectomy and Orthopedic
Social History
Tobacco: Former Smoker (Quit 02/2024)
Alcohol: Occasional
Drug: None
Personal:
Living: With Family
Employment: Employed
Family History
Family History: CAD and Hypertension
Allergies / Home Medications
Allergy/AdvReac Type Severity Reaction Status Date / Time
No Known Allergies Allergy Verified 10/09/25 09:33
�Medication �Instructions �Recorded �Confirmed �Type
allopurinol 100 mg tablet 100 mg PO DAILY 03/17/21 10/21/25 History
aspirin 81 mg tablet,delayed 162 mg PO DAILYPRN PRN chest pain 06/03/24 10/21/25 History
release
potassium citrate 15 mEq (1,620 15 meq PO DAILY 06/03/24 10/21/25 History
mg) tablet,extended release
lisinopril 40 mg tablet 40 mg PO DAILY #30 tabs 10/09/25 10/21/25 Rx
metoprolol succinate 25 mg 25 mg PO DAILY #30 tabs 10/09/25 10/21/25 Rx
tablet,extended release 24 hr
(Toprol XL)
aspirin 81 mg tablet 81 mg PO DAILY 10/21/25 10/21/25 History
metformin 500 mg tablet 500 mg PO BID 10/21/25 10/21/25 History
naproxen sodium 220 mg tablet 220 mg PO [id number] PRN mild pain 10/21/25 10/21/25 History
([place])
Review of Systems
-
History Source: Patient
All other systems: Negative unless noted
Physical Exam
Vital Signs
Temp Pulse Resp BP Pulse Ox
97.4 F 68 11 95/63 97
10/21/25 07:10 10/21/25 09:30 10/21/25 07:30 10/21/25 09:00 10/21/25 09:15
Lab Results
10/21/25 07:39
10/21/25 07:39
Troponin I 0.029 ng/ml 10/21/25 07:39
Physical Exam
General: Well Developed, Well Nourished and No Apparent Distress
HEENT: Normocephalic, Anicteric and Moist Mucous Membranes
Respiratory: Clear and Non Labored Respirations
Cardiac: S1/S2 and Regular Rhythm
Musculoskeletal: No Clubbing, No Cyanosis and No Edema
Skin: Warm and Dry
Neuro: AO x 3 and Nonfocal/Grossly Intact
Psych: Calm
Impression / Plan
-
PCP: Dr. Ortega
Registered Mail Clerk: Dr. Santos
Impression:
Presented with chest pain
Paroxysmal atrial fibrillation w/ RVR, newly diagnosed
HTN, uncontrolled
Dilated aortic root
HLD
DM2
Former tobacco abuse
Echo 09/17/2024: EF 55-60%, mild cLVH, no significant valvular disease
Echo 10/21/2025: Study pending
Plan:
-Presented with chest pain. Has been having exertional chest pain over the past few weeks, this AM worsened and had pain at rest w/ associated diaphoresis, SOB, and dizziness.
-Noted to be in new atrial fibrillation w/ RVR on initial EKG. Converted to SR while in ER. Remains in SR with HR in the 50s on review of telemetry.
-IV heparin started in ER. Will continue IV heparin for now and will have CM assess the cost of Eliquis 5mg BID.
-Chest pain free after IV morphine given in ER. Continue to follow
-Initial troponin 0.029, repeat pending. Continue to trend
-Loaded with aspirin in ER. Continue aspirin 81mg daily.
-Check echo. Prior echo 09/2024 with preserved EF, no significant valvular disease as noted above.
-BP has been significantly elevated as OP, 200s/100s despite lisinopril 40mg daily and metoprolol 25mg daily, but now hypotensive in ER with BP most recently 95/63.
-CTA of chest completed w/ report pending.
-Given progressively worsening chest pain w/ pain at rest this AM w/ h/o tobacco abuse, uncontrolled HTN, DM,and HLD, would recommend ischemic evaluation, timing TBD.
-Check CVE, Hgb A1c.
-Check TSH. K 4.0.
-On 2L NC, wean as able.
HPI: Robert is a 55 year old male with PMH of uncontrolled HTN, HLD, former tobacco abuse, and dilated aortic root. Presented to [facility] ER for evaluation of chest pain and significantly elevated BP. He was recently seen in the cardiology office on
10/09/2025 for elevated BPs and chest pain. In office, was markedly hypertensive with BP 250/120 and admitted to chest pain while walking into office, so was sent to ER. He was evaluated and had troponin within the normal range x2 and BP improved
after medication, so he was started on higher dose lisinopril 40mg daily and metoprolol succinate 25mg daily. He states since that time, he has continued w/ exertional chest discomfort and blood pressures have remained elevated. Yesterday he did
some snow blowing, but did not feel he over exerted himself. When he woke up this AM, he noticed fairly significant chest pain while at rest with radiation into his back as well as shortness of breath, diaphoresis, and dizziness. He checked his BP
and it was significantly elevated at 254/168 and pain continued to worsen over 20 minutes, prompting ER evaluation. Also noted feeling 'weird' heart rhythm and came to ER for evaluation. On arrival, noted to be in rapid atrial fibrillation which was
a new diagnosis. Given ongoing severe chest pain, he was given morphine and his pain has since subsided. Pain free at this time. Noted to be hypoxic in ER with pulse ox 88% and he was placed on 2L NC. Initial troponin within normal range but
detectable at 0.029. He converted to SR and remains in SR at this time.
Data Reviewed
-
EKG: Tracing Personally Visualized and interpreted
Labs: Labs Reviewed by me
Old Records: Reviewed
[2025-10-21] MEDS: HEPARIN 4000 UNITS IV (10:11)
[2025-10-21 10:16] LABS: Troponin I 0.043 ng/ml
[2025-10-21] MEDS: HEPARIN 25000 UNITS/250 ML IV (10:17)
[2025-10-21] MEDS: LOW STRENGTH ASPIRIN 162 MG PO (10:37)
--- NOTE | 2025-10-21 11:48 | HPS.HSE ---
Family Physician
-
Family Physician: Robert Edwards
Chief Complaint
-
chest pain
History of Present Illness
55-year-old male past medical history as below who is presenting from home with complaints of chest pain. Patient said he has history of hypertension and recently his blood pressure medications were adjusted. Yesterday patient did some
snowblowing. This morning patient was doing his activities of daily living and noticed significant chest pain while at rest with radiation. Also states of diaphoresis and shortness of breath. Checked her blood pressure at home was found to be
significantly elevated. No lightheadedness or dizziness. No nausea or vomiting. No prior cardiac history. In the ER patient was found to be in rapid atrial fibrillation and patient eventually converted to normal sinus rhythm and with mild
bradycardia. Patient also received morphine which led to complete alleviation of chest pain. Currently patient is comfortable sitting on ER bed.
Medical History
Past Medical History
Past Medical History: Reports HTN, Hypercholesterolemia and NIDDM
Past Surgical History: Reports Cholecystectomy
Social History
Tobacco: Former Smoker (Quit in 2023)
Alcohol: Occasional
Personal:
Living: With Family
Family History
Family History: Not pertinent
Allergies / Home Medications
Allergies reflects when Allergies were last updated in [facility].
Home Medications with original date entered in [facility]
Allergy/Medication List:
Allergies
Allergy/AdvReac Type Severity Reaction Status Date / Time
No Known Allergies Allergy Verified 10/09/25 09:33
Home Medications
allopurinol 100 mg tablet 100 mg PO DAILY 03/17/21
aspirin 81 mg tablet,delayed release 162 mg PO DAILYPRN PRN chest pain 06/03/24
potassium citrate 15 mEq (1,620 mg) tablet,extended release 15 meq PO DAILY 06/03/24
lisinopril 40 mg tablet 40 mg PO DAILY #30 tabs 10/09/25
metoprolol succinate 25 mg tablet,extended release 24 hr (Toprol XL) 25 mg PO DAILY #30 tabs 10/09/25
aspirin 81 mg tablet 81 mg PO DAILY 10/21/25
metformin 500 mg tablet 500 mg PO BID 10/21/25
naproxen sodium 220 mg tablet (Aleve) 220 mg PO [id number] PRN mild pain 10/21/25
Review of Systems
-
History Source: Patient and Family
A 12 point ROS was completed and negative except as noted: Yes
Physical Exam
Vital Signs
Vital Signs
Temp Pulse Resp BP Pulse Ox
97.4 F 51 11 135/81 97
10/21/25 07:10 10/21/25 10:15 10/21/25 07:30 10/21/25 10:00 10/21/25 10:15
Physical Exam
General: Well Developed, Well Nourished, No Apparent Distress and Obese
HEENT: NormoCephalic, Moist mucous membranes, Atraumatic and Oxygen
Respiratory: Clear
Cardiac: S1/S2 and Bradycardia; No Murmur or Rub
GI: Soft, Non Tender, Non Distended and Normal Bowel Sounds; No Organomegaly
Rectal: Deferred by Provider
Musculoskeletal: No Clubbing, No Cyanosis and No Edema
Skin: No Rash
Neuro: Awake, Alert, Oriented, AO x 3, No Motor Deficits and Nonfocal/grossly intact
Psych: Calm
Laboratory Results
-
10/21/25 07:39
10/21/25 07:39
Laboratory Results
PT 13.3 Sec (11.4-14.6) 10/21/25 08:24
INR 1.00 10/21/25 08:24
APTT 29.2 Sec (23.4-35.0) 10/21/25 08:24
Total Bilirubin 0.9 mg/dl (0.2-1.3) 10/21/25 07:39
AST 40 U/L (17-59) 10/21/25 07:39
ALT 52 U/L (0-50) H 10/21/25 07:39
Alkaline Phosphatase 97 U/L (38-126) 10/21/25 07:39
Troponin I 0.043 ng/ml H* D 10/21/25 09:34
Data Reviewed
-
Lab Data: Labs Reviewed by me and Discussed with Patient
Impression/Plan
-
#Hypertension urgency
#Primary hypertension remains uncontrolled
Patient blood pressure improved.
Continue with lisinopril
Avoid beta-cristóbal in the setting of bradycardia
Norvasc started
#Elevated troponin with concern for ACS
Status post aspirin
Continue with heparin infusion
Check lipid panel and A1c
Hold metformin
Check echocardiogram
Plan for cardiac catheterization in the morning
#Paroxysmal atrial fibrillation with RVR
Converted to NSR with bradycardia
Hold AV sanjeev blocking agents for now
Continue with heparin and eventual transition to DOAC
#Diabetes mellitus type 2
Hold metformin he has planned for cardiac catheterization tomorrow morning
Insulin sliding scale and Accu-Cheks
Check A1c
#Small distal infrarenal abdominal aortic aneurysm ?uncontrolled BP
CTA abdomen/pelvis noted
#Hepatic steatosis
#Obesity likely due to excess calories
History of tobacco abuse with Emphysematous lung changes noted on CT scan
OP pulm f/u recommended
#Gout
allopurinol
DVT ppx-hep gtt
Full code
d/w with cardiology
d/w with spouse at bedside in details
I spent a total of 80 minutes with the patient or on the floor. More than 50% of this time involved counseling and coordination of care.
--- NOTE | 2025-10-21 16:09 | CM ---
Pricing on Eliquis through the patient's [facility] is $50 for a 30 day supply and $100 for a 90 day supply. The patient has commercial insurance and qualifies for the $10 copay card. I will place the $10 copay card in the patient's red discharge
folder.
--- NOTE | 2025-10-21 16:27 | CM ---
Chart reviewed. Patient is independent of ADLS, lives with his in a 2 STH, 0 JOSSE, 0 DME. Plan is for the patient to return home
[2025-10-21 16:52] LABS: Glucose - Point of Care 138 mg/dl (70-99)
--- NOTE | 2025-10-21 17:00 | PTCARENOTE ---
PT recieved from ED; AAOx3 w/o complaints of pain; SB on monitor; RA clear thourghout; GI and WNL; PIVx2 wnl; see worklist for detailed assessment
[2025-10-21] MEDS: NOVOLOG FLEXPEN-LOW RESISTANCE SC (17:50)
[2025-10-21 18:20] LABS: APTT 40.5 Sec (23.4-35.0)
[2025-10-21 22:15] LABS: Glucose - Point of Care 202 mg/dl (70-99)
[2025-10-22] VITALS (34 sets, daily range): BP systolic 151–221; BP diastolic 82–127; BMI 36.3
[2025-10-22 00:57] LABS: APTT 40.5 Sec (23.4-35.0)
--- NOTE | 2025-10-22 03:41 | PTCARENOTE ---
Pt SB on monitor, SBP in 170s PULLEY MORTISER OPERATOR made aware. no new orders at this time. Pt denies pain or discomfort. On Heparin per protocol. Pt independent in the room. Call thomas within reach
--- NOTE | 2025-10-22 03:55 | PTCARENOTE ---
Patient complains of headache rating 7 out of 10. Reports Tylenol does not help. MD made aware and ordered 25mg Ultram PO.
[2025-10-22] MEDS: NORVASC 2.5 MG PO (04:44)
[2025-10-22] MEDS: HEPARIN 25000 UNITS/250 ML IV (05:40)
[2025-10-22] MEDS: ZESTRIL 40 MG PO (06:09)
[2025-10-22 06:21] LABS: Hematocrit 43.2 % (39.0-52.0); Hemoglobin 15.0 g/dL (13.0-18.0); Mean Corp Hgb Conc. 34.7 g/dL (33.0-37.0); Mean Corpuscular Volume 88.0 fL (80.0-94.0); Nucleated Red Blood Cells % 0 % (-); Platelet Count 155 10^3/uL (130-400); Red Cell Dist. Width 12.6 % (11.5-14.5)
[2025-10-22 06:30] LABS: APTT 49.5 Sec (23.4-35.0)
[2025-10-22 06:51] LABS: Troponin I 0.066 ng/ml
[2025-10-22 07:00] LABS: Glucose - Point of Care 128 mg/dl (70-99)
[2025-10-22] MEDS: ASPIR LOW (ENTERIC COATED) 81 MG PO (08:44)
[2025-10-22] MEDS: NOVOLOG FLEXPEN-LOW RESISTANCE SC ×3 (08:44→18:16)
[2025-10-22] MEDS: FLUSH (NSS) 1 FLUSH IV (08:45)
[2025-10-22 08:52] LABS: Glycohemoglobin (HgbA1c) 6.2 % (4.0-5.9)
--- NOTE | 2025-10-22 09:41 | PTCARENOTE ---
Patient is NPO for cardiac cath this morning, IV heparin infusing at 1600 units/hr. BP remains elevated despite receiving morning meds early today by manufacturing shift supervisor. TT to Dr. Benito and cardiology notified.
[2025-10-22] MEDS: NORVASC 7.5 MG PO (10:12)
[2025-10-22 11:36] LABS: Blood Urea Nitrogen 19 mg/dl (9-20); Calcium 8.9 mg/dl (8.4-10.2); Carbon Dioxide 27 mmol/L (22-30); Chloride 108 mmol/L (98-107); Estimated Creatinine Clearance 116 ml/min; Glucose 105 mg/dl (70-99); HDL Cholesterol 37 mg/dl; LDL Cholesterol, Calculated 61 mg/dl; Magnesium 1.9 mg/dl (1.6-2.3); Potassium 3.9 mmol/L (3.5-5.1); Sodium 139 mmol/L (135-145); Very Low Density Lipoprotein 37 mg/dl (0-30); eGFR > 60.00
--- NOTE | 2025-10-22 11:42 | W.PN.UPDATE ---
Update Note
Progress Note Update
Patient going for cardiac catheterization today. Blood pressure has been quite elevated and difficult to control with oral medication including lisinopril 40 mg and amlodipine 10 mg. Most recent blood pressure 210/110. Discussed with hospitalist,
bunch breaker and nursing. Start nitroglycerin drip for blood pressure control.
[2025-10-22 11:49] LABS: Glucose - Point of Care 103 mg/dl (70-99)
--- NOTE | 2025-10-22 12:02 | ITS.CL.CATH ---
Utility Worker - Catheterization
Cardiac Catheterization
Procedure Report:
LEFT HEART CATHETERIZATION
Date of Procedure: October 22, 2025
Referring: Pavel Zamarripa MD
PROCEDURES:
1. Left heart catheterization, coronary angiogram.
2. Moderate sedation.
INDICATION: Concern for NSTEMI
ACCESS: Right radial artery, 6Fr. sheath, under US guidance.
HEMODYNAMICS : (mmHg)
AO (s/d) : 170/89
LVEDP : 20
No significant gradient across the aortic valve to suggest aortic stenosis.
CORONARY FINDINGS
Dominance: Right
Left Main Trunk (LMT): Large caliber vessel that gives rise to the LAD and LCx branches and is free of angiographic disease.
Left Anterior Descending Artery (LAD): Large caliber vessel that gives off 2 major diagonal branches as it courses along the anterior inter-ventricular groove before wrapping around the cardiac apex. Mid LAD just proximal to D2 has 30% stenosis.
Otherwise there is mild diffuse atherosclerotic plaque.
Left Circumflex Artery (LCx): Small caliber vessel that gives off 2 major obtuse marginal (OM) branches as it courses along the atrio-ventricular (AV) groove. There is mild diffuse atherosclerotic plaque.
Right Coronary Artery (RCA): Large caliber dominant vessel that gives rise to the posterior descending artery (RPDA) and postero-lateral ventricular (RPLV) branches distally. There is mild diffuse atherosclerotic plaque
SEDATION: 27 minutes of procedural sedation was utilized. IV Midazolam and IV Fentanyl were administered. An independent medical sales was present to assist with and help manage the patient's level of consciousness and physiologic status.
Closure Device: There were no immediate intra-procedural complications. The sheath was pulled in the irrigation laborer and a vascular-band applied to the right wrist for radial artery hemostasis using the patent hemostasis technique.
CONCLUSIONS
1. No obstructive coronary artery disease.
2. LVEDP of 20 mmHg in the setting of systemic hypertension.
RECOMMENDATIONS
1. Wean radial band per protocol. Monitor right hand perfusion and for bleeding from the radial site following removal of the vascular-band following trans-radial access.
2. Continue aggressive medical therapy and risk factor modification for secondary CAD prevention.
3. Hydrate with normal saline to mitigate the risk of contrast-induced acute kidney injury.
Leslee Vasquez MD, [facility], [facility]
Copy to: Pavel Zamarripa MD
[2025-10-22] MEDS: NITROGLYCERIN PREMIX 250 IV (12:05)
--- NOTE | 2025-10-22 12:18 | PTCARENOTE ---
Nitro gtt infusing as ordered at 10mcg/min for elevated BP, will continue to titrate as ordered.
[2025-10-22] MEDS: TYLENOL 650 MG PO ×2 (12:36→18:10)
--- NOTE | 2025-10-22 13:51 | PTCARENOTE ---
Patient taken to the medical lab tech instructor.
--- NOTE | 2025-10-22 14:18 | CM ---
Chart reviewed. Patient waiting to go for his LH. Patient is independent of ADLS, lives with his in a 2 STH, 0 JOSSE, 0 DME. Plan is for the patient to return home. CM to follow
--- NOTE | 2025-10-22 14:27 | W.PN.HOSP.TC ---
Today's Communication/Plan
-
Strict blood pressure control
Nitro drip for now
Cardiac cath
Heparin drip
Eventual DOAC
Monitor heart rate
Assessment / Plan
Assessment / Plan
General: Well Developed, Well Nourished, No Apparent Distress and Obese
HEENT: NormoCephalic, Moist mucous membranes, Atraumatic and Oxygen
Respiratory: Clear
Cardiac: S1/S2 and Bradycardia; No Murmur or Rub
GI: Soft, Non Tender, Non Distended and Normal Bowel Sounds; No Organomegaly
Rectal: Deferred by Provider
Musculoskeletal: No Clubbing, No Cyanosis and No Edema
Skin: No Rash
Neuro: Awake, Alert, Oriented, AO x 3, No Motor Deficits and Nonfocal/grossly intact
Psych: Calm
#Hypertension emergency
#Primary hypertension remains uncontrolled
Patient blood pressure improved.
Continue with lisinopril
Avoid beta-cristóbal in the setting of bradycardia
Norvasc started dose increased
Nitroglycerin drip
Thiazide diuretics if creatinine stable
Plasma metanephrines pending
Probably will require multiple agents for blood pressure control
#Elevated troponin with concern for ACS
Status post aspirin
Continue with heparin infusion
LDL at 61. A1c 6.2.
Hold metformin
Check echocardiogram
Plan for cardiac catheterization
#Paroxysmal atrial fibrillation with RVR
Converted to NSR with bradycardia
Hold AV sanjeev blocking agents for now
Continue with heparin and eventual transition to DOAC
#Diabetes mellitus type 2
Hold metformin he has planned for cardiac catheterization tomorrow morning
Insulin sliding scale and Accu-Cheks
Check A1c 6.2
#Small distal infrarenal abdominal aortic aneurysm ?uncontrolled BP
CTA abdomen/pelvis noted
#Hepatic steatosis
#Obesity likely due to excess calories
History of tobacco abuse with Emphysematous lung changes noted on CT scan
OP pulm f/u recommended
#Gout
allopurinol
DVT ppx-hep gtt
Full code
d/w with cardiology
Anticipated Discharge: > 48 hours
Subjective/Interval History
-
Date of Service: October 22, 2025
Denies chest pain
Found to have significantly elevated blood pressure
Objective Data
-
Labs:
Laboratory Results
10/22/25 10/22/25 10/22/25
05:55 05:56 10:39
WBC 7.4
Hgb 15.0
Hct 43.2
Plt Count 155
APTT 49.5 H
Sodium Cancelled 139
Potassium Cancelled 3.9
Chloride Cancelled 108 H
Carbon Dioxide Cancelled 27
BUN Cancelled 19
Creatinine Cancelled 1.0
Glucose Cancelled 105 H
Calcium Cancelled 8.9
10/22/25
13:00
WBC
Hgb
Hct
Plt Count
APTT Cancelled
Sodium
Potassium
Chloride
Carbon Dioxide
BUN
Creatinine
Glucose
Calcium
Vital Signs:
Vital Signs
Temp Pulse Resp BP Pulse Ox
97.8 F 54 16 211/110 96
10/22/25 10:59 10/22/25 11:15 10/22/25 10:59 10/22/25 11:14 10/22/25 10:59
I&O
10/21/25 10/22/25 10/23/25
06:59 06:59 06:59
Intake Total 442 / 442
Balance 442 / 442
Data Reviewed
-
Total Time Spent with Patient (in minutes): 55
--- NOTE | 2025-10-22 14:43 | PTCARENOTE ---
Patient returned from the manager lab with radial band in place right wrist. No bleeding or hematoma noted from the right wrist, pulse palpable with pulse ox of 95%. BP 153/88, IV NTG infusing at 25 mcg/min, at the bedside, call thomas in reach.
[2025-10-22] MEDS: ZYLOPRIM 100 MG PO (15:43)
--- NOTE | 2025-10-22 16:36 | PTCARENOTE ---
TT to Dr. Benito and cardiology re: nitro gtt after cardiac cath, to continue for now. BP 167/87-60, offers no complaints, removing air from radial band per protocol.
[2025-10-22 18:16] LABS: Glucose - Point of Care 144 mg/dl (70-99)
[2025-10-22] MEDS: ULTRAM 25 MG PO (21:24)
[2025-10-22 22:26] LABS: Glucose - Point of Care 130 mg/dl (70-99)
[2025-10-23] VITALS (38 sets, daily range): BP systolic 107–253; BP diastolic 60–130
[2025-10-23] MEDS: TYLENOL 650 MG PO (02:05)
[2025-10-23] MEDS: DILAUDID 0.25 MG IV (02:40)
--- NOTE | 2025-10-23 02:45 | PTCARENOTE ---
Addendum entered by Silvia Ruano RN 10/23/25 06:21:
Patient complaints of severe headache, very agitated. Systolic BP 190-200. Patient requesting to turn off Nitro drip off, feels it is making him worse. Dr. Khan made aware, new order to stop Nitro drip, give morning cardiac meds, and 1x order
for 20 mg hydralazine IV for systolic pressure greater than 170.
Original Note:
Patient complains of headache pain rating 8 out of 10. BP's continue to be elevated on Nitro gtt, drop now at 40 mcg/min (6 ml/hr). BP 182/102, HR 61. made aware. Order given for Dilaudid 0.25mg IV (See Mar).
[2025-10-23 03:44] LABS: Hematocrit 40.6 % (39.0-52.0); Hemoglobin 14.1 g/dL (13.0-18.0); Mean Corp Hgb Conc. 34.7 g/dL (33.0-37.0); Mean Corpuscular Volume 88.6 fL (80.0-94.0); Nucleated Red Blood Cells % 0 % (-); Platelet Count 151 10^3/uL (130-400); Red Cell Dist. Width 12.3 % (11.5-14.5)
[2025-10-23 04:06] LABS: Blood Urea Nitrogen 18 mg/dl (9-20); Calcium 8.7 mg/dl (8.4-10.2); Carbon Dioxide 26 mmol/L (22-30); Chloride 105 mmol/L (98-107); Estimated Creatinine Clearance 116 ml/min; Glucose 123 mg/dl (70-99); Potassium 4.3 mmol/L (3.5-5.1); Sodium 138 mmol/L (135-145); eGFR > 60.00
--- NOTE | 2025-10-23 05:17 | W.PN.UPDATE ---
Update Note
Progress Note Update
patient complaining of headaches. BP high, on nitro drip.
2123 Tramadol 25mg PO given as he is refusing Tylenol for now.
229 182/102 complained headache and patient requesting Dilaudid as it has helped him with headaches
Dilaudid .25mg IV x1
514 requesting Tramadol again, refusing Dilaudid
Addressed IV Compazine to help with nitro induced headaches. no other symptoms
addressed RN to give one of the morning antihypertensive early.
Advised RN to addressed the matter to Production Broacher
Hold Nitro drip
IV hydralazine 20mg x1
[2025-10-23] MEDS: COMPAZINE 10 MG IV (05:27)
[2025-10-23] MEDS: ZESTRIL 40 MG PO (05:44)
[2025-10-23] MEDS: NORVASC 10 MG PO (05:51)
[2025-10-23] MEDS: APRESOLINE 20 MG IV (06:47)
[2025-10-23] MEDS: ATIVAN 0.5 MG PO ×2 (07:40→10:27)
[2025-10-23] MEDS: NOVOLOG FLEXPEN-LOW RESISTANCE SC ×3 (08:00→17:55)
[2025-10-23] MEDS: APRESOLINE 25 MG PO ×3 (09:03→22:12)
[2025-10-23] MEDS: ASPIR LOW (ENTERIC COATED) 81 MG PO (09:04)
[2025-10-23] MEDS: ZYLOPRIM 100 MG PO (09:04)
[2025-10-23] MEDS: ELIQUIS 5 MG PO ×2 (09:04→19:20)
[2025-10-23] MEDS: FLUSH (NSS) 1 FLUSH IV (09:05)
[2025-10-23 09:14] LABS: Glucose - Point of Care 159 mg/dl (70-99)
[2025-10-23] MEDS: TRANDATE 100 MG PO ×2 (10:16→19:19)
--- NOTE | 2025-10-23 10:25 | W.PN.CARDCBS ---
Addendum entered and electronically signed by Eugenio Khan DO 10/23/25 14:09:
I saw and examined the patient.
The Gore Seamer's note was reviewed and I agree with the note.
Comment:
Plan:
Blood pressure remains an issue.
He did not tolerate IV nitroglycerin with headache but does not require this; his cardiac catheterization did not show obstructive CAD.
His echo was stable with normal function and unremarkable.
Start labetalol 100 twice daily. Continue lisinopril, hydralazine, chlorthalidone
Blood work has already been drawn for secondary hypertension evaluation
He is under significant stress with a new job and stress reduction is a necessity.
Continue Eliquis for paroxysmal atrial fibrillation newly diagnosed remains in sinus rhythm
Original Note:
Today's Communication / Plan
-
add labetalol 100mg BID
follow BP/HR trends
consider secondary HTN work up
continue eliquis for PAF on arrival, now in SR
Impression / Plan
-
PCP: Dr. Ortega
What Job Titles Mean: Dr. Santos
Impression:
Presented with chest pain
Paroxysmal atrial fibrillation w/ RVR, newly diagnosed, back in SR
HTN emergency
Elevated troponin, suspected nonischemic myocardial injury due to above
Dilated aortic root
HLD
DM2
Former tobacco abuse
History of kidney stones
Fatty liver
Echo 09/17/2024: EF 55-60%, mild cLVH, no significant valvular disease
Echo 10/21/2025: EF 55-60%, no significant valvular disease
Plan:
- Presented with chest pain
-Chest/abdomen/pelvis CTA from 10/21 reviewed with no evidence of aortic dissection, aneurysm, ulcer
- underwent echo with results as above, preserved EF, results reviewed with patient 10/23
- underwent cath 10/22 with nonobstructive CAD, results reviewed with patient 10/23
- trop trending up, 0.066. no CP overnight. trend to peak. suspected nonischemic myocardial injury due to HTN
- BPs elevated, consistent with hypertensive emergency with CP and trop elevation. was on IV nitro overnight however caused migraine headache and was stopped with improvement
- had some sinus rina in 50s yesterday on toprol, now improved to 80s on review of tele. will initiate labetalol 100mg BID and follow BP/HR trends. continue OP lisinopril. Also initiated on chlorthalidone, and hydralazine this admission.
- with significant stress of starting new job. required ativan this morning.
- consider secondary HTN work up
- also had afib on arrival, maintaining SR overnight on review of tele. initiated on eliquis. as without CAD, will stop asa to reduce bleeding risk
- TSH WNL
- CVE with LDL 61. hgbA1c 6.2%.
- d/w nursing
HPI: Robert is a 55 year old male with PMH of uncontrolled HTN, HLD, former tobacco abuse, and dilated aortic root. Presented to [facility] ER for evaluation of chest pain and significantly elevated BP. He was recently seen in the cardiology office on
10/09/2025 for elevated BPs and chest pain. In office, was markedly hypertensive with BP 250/120 and admitted to chest pain while walking into office, so was sent to ER. He was evaluated and had troponin within the normal range x2 and BP improved
after medication, so he was started on higher dose lisinopril 40mg daily and metoprolol succinate 25mg daily. He states since that time, he has continued w/ exertional chest discomfort and blood pressures have remained elevated. Yesterday he did
some snow blowing, but did not feel he over exerted himself. When he woke up this AM, he noticed fairly significant chest pain while at rest with radiation into his back as well as shortness of breath, diaphoresis, and dizziness. He checked his BP
and it was significantly elevated at 254/168 and pain continued to worsen over 20 minutes, prompting ER evaluation. Also noted feeling 'weird' heart rhythm and came to ER for evaluation. On arrival, noted to be in rapid atrial fibrillation which was
a new diagnosis. Given ongoing severe chest pain, he was given morphine and his pain has since subsided. Pain free at this time. Noted to be hypoxic in ER with pulse ox 88% and he was placed on 2L NC. Initial troponin within normal range but
detectable at 0.029. He converted to SR and remains in SR at this time.
Progress Note - What Job Titles Mean
Subjective
Date of Service: October 23, 2025
no CP, SOB. reports headache better. BPs still high
Objective
Labs:
10/23/25 03:21
10/23/25 03:21
Labs
Hgb 14.1 g/dL (13.0-18.0) 10/23/25 03:21
Hct 40.6 % (39.0-52.0) 10/23/25 03:21
Plt Count 151 10^3/uL (130-400) 10/23/25 03:21
PT 13.3 Sec (11.4-14.6) 10/21/25 08:24
INR 1.00 10/21/25 08:24
APTT Cancelled 10/22/25 13:00
Sodium 138 mmol/L (135-145) 10/23/25 03:21
Potassium 4.3 mmol/L (3.5-5.1) 10/23/25 03:21
BUN 18 mg/dl (9-20) 10/23/25 03:21
Creatinine 1.0 mg/dL (0.7-1.3) 10/23/25 03:21
Glucose 123 mg/dl (70-99) H 10/23/25 03:21
Troponins
10/21/25 10/21/25 10/22/25
07:39 09:34 05:56
Troponin I 0.029 0.043 H* D 0.066 H*
Vital Signs and I&O:
Vital Signs
Temp Pulse Resp BP Pulse Ox
97.4 F 85 16 207/98 98
10/23/25 07:07 10/23/25 10:16 10/23/25 07:07 10/23/25 10:16 10/23/25 07:07
Vital Signs
Temp Pulse Resp BP Pulse Ox
97.4 F 85 16 207/98 98
10/23/25 07:07 10/23/25 10:16 10/23/25 07:07 10/23/25 10:16 10/23/25 07:07
Intake & Output
10/21/25 10/22/25 10/23/25 10/24/25
07:59 07:59 07:59 07:59
Intake Total 442 / 442 1360 / 1360
Balance 442 / 442 1360 / 1360
Physical Exam
Physical Exam
GEN: No distress, awake, alert, oriented x3
HEENT: supple, anicteric, mmm, eomi
LUNGS: CTA B/L, no wheezes/rales
CV: Reg, S1/S2, no murmur
ABD: soft, BS+, NT/ND
EXT: No cyanosis, clubbing, edema
NEURO: Gross non-focal
SKIN: Warm, pink, dry. No rash
--- NOTE | 2025-10-23 10:51 | PTCARENOTE ---
At change of shift this morning, patient very hypertensive with BP 253/105. Had just received IV hydralazine 20mg as ordered. Patient extremely anxious and restless, states he had a very bad night with nitro gtt which is now off but appears
overwhelmed. Order obtained for ativan 0.5mg PO which was given. Patient seen by Margarita CHILDERS and now given labetalol PO for persistent high BP. Remains very restless and given an additional 0.5mg PO ativan as ordered.
[2025-10-23 11:21] LABS: Troponin I 0.053 ng/ml
[2025-10-23 13:04] LABS: Glucose - Point of Care 122 mg/dl (70-99)
--- NOTE | 2025-10-23 13:41 | PTCARENOTE ---
After patient received second dose of ativan 0.5mg PO he was able to sleep a little. BP much improved, 145/93, SB in the 50's, feeling better and ordering some lunch.
--- NOTE | 2025-10-23 14:06 | CM ---
Chart reviewed. Patient is independent of ADLS, lives with his in a 2 STH, 0 JOSSE, 0 DME. Plan is for the patient to return home. CM to follow
--- NOTE | 2025-10-23 14:24 | W.PN.HOSP.TC ---
Today's Communication/Plan
-
Continue with aggressive blood pressure control-seems to be improving
Started on Eliquis
Stress reduction priority
Hopeful discharge 24 hours
Assessment / Plan
Assessment / Plan
General: Well Developed, Well Nourished, No Apparent Distress and Obese
HEENT: NormoCephalic, Moist mucous membranes, Atraumatic and Oxygen
Respiratory: Clear
Cardiac: S1/S2 and Bradycardia; No Murmur or Rub
GI: Soft, Non Tender, Non Distended and Normal Bowel Sounds; No Organomegaly
Rectal: Deferred by Provider
Musculoskeletal: No Clubbing, No Cyanosis and No Edema
Skin: No Rash
Neuro: Awake, Alert, Oriented, AO x 3, No Motor Deficits and Nonfocal/grossly intact
Psych: Calm
#Hypertension emergency
#Primary hypertension remains uncontrolled
Continue with lisinopril 40 mg
Norvasc dose increased to 10 mg daily
Labetalol has been added per cardiology. Heart rate has improved
Chlorthalidone has been started
Hydralazine 25 mg 3 times daily added
Plasma metanephrines pending
Probably will require multiple agents for blood pressure control
Blood pressure last checked 146/89 improving
#Elevated troponin with concern for ACS
Status post aspirin
Continue with heparin infusion
LDL at 61. A1c 6.2.
Hold metformin
Echo EF of 55 to 60%. Mild LVH. Diastolic function indeterminate.
Plan for cardiac catheterization showing nonobstructive CAD
#Paroxysmal atrial fibrillation with RVR
Bradycardia resolved.
Started on Eliquis.
#Diabetes mellitus type 2
Hold metformin
Insulin sliding scale and Accu-Cheks
Check A1c 6.2
#Small distal infrarenal abdominal aortic aneurysm ?uncontrolled BP
CTA abdomen/pelvis noted
#Hepatic steatosis
#Obesity likely due to excess calories
History of tobacco abuse with Emphysematous lung changes noted on CT scan
OP pulm f/u recommended
#Gout
allopurinol
DVT ppx-Eliquis
Full code
Anticipated Discharge: Within 24 hours
Subjective/Interval History
-
Date of Service: October 23, 2025
Overnight patient was on nitro causing headaches which has been resolved now
Off nitroglycerin drip
Was highly anxious earlier today
Objective Data
-
Labs:
Laboratory Results
10/23/25
03:21
WBC 8.9
Hgb 14.1
Hct 40.6
Plt Count 151
Sodium 138
Potassium 4.3
Chloride 105
Carbon Dioxide 26
BUN 18
Creatinine 1.0
Glucose 123 H
Calcium 8.7
Vital Signs:
Vital Signs
Temp Pulse Resp BP Pulse Ox
97.7 F 63 16 146/89 97
10/23/25 12:38 10/23/25 11:45 10/23/25 12:38 10/23/25 11:00 10/23/25 12:38
I&O
10/22/25 10/23/25 10/24/25
06:59 06:59 06:59
Intake Total 442 / 442 1360 / 1360 960 / 960
Balance 442 / 442 1360 / 1360 960 / 960
Data Reviewed
-
Total Time Spent with Patient (in minutes): 55
[2025-10-23 17:29] LABS: Glucose - Point of Care 118 mg/dl (70-99)
[2025-10-23 22:05] LABS: Glucose - Point of Care 114 mg/dl (70-99)
--- NOTE | 2025-10-24 00:11 | PTCARENOTE ---
Pt. has no complaints of chest pain or headache this shift, NSR-SB (50's) on the monitor. SBP ranging 130-150's. Right radial cath site dressing CDI, assessment WNL. Pt. currently sleeping.
[2025-10-24 04:07] VITALS: BP 172/99
[2025-10-24] MEDS: NORVASC 10 MG PO (04:26)
[2025-10-24] MEDS: ZESTRIL 40 MG PO (04:26)
--- NOTE | 2025-10-24 04:29 | PTCARENOTE ---
Pt.'s BP 172/99, HR low 50's. Per hospitalist POSTIE yeny Mercado to give 0800 doses of Norvasc and lisinopril now. Medications given.
[2025-10-24 04:56] LABS: Blood Urea Nitrogen 16 mg/dl (9-20); Calcium 9.1 mg/dl (8.4-10.2); Carbon Dioxide 24 mmol/L (22-30); Chloride 105 mmol/L (98-107); Estimated Creatinine Clearance 116 ml/min; Glucose 128 mg/dl (70-99); Potassium 3.7 mmol/L (3.5-5.1); Sodium 138 mmol/L (135-145); eGFR > 60.00
[2025-10-24 05:23] LABS: Hematocrit 44.8 % (39.0-52.0); Hemoglobin 15.6 g/dL (13.0-18.0); Mean Corp Hgb Conc. 34.8 g/dL (33.0-37.0); Mean Corpuscular Volume 88.4 fL (80.0-94.0); Nucleated Red Blood Cells % 0 % (-); Platelet Count 160 10^3/uL (130-400); Red Cell Dist. Width 12.9 % (11.5-14.5)
[2025-10-24 07:31] VITALS: BP 165/95
[2025-10-24] MEDS: ELIQUIS 5 MG PO (07:42)
[2025-10-24] MEDS: APRESOLINE 25 MG PO (07:42)
[2025-10-24] MEDS: ZYLOPRIM 100 MG PO (07:42)
[2025-10-24 08:19] LABS: Glucose - Point of Care 151 mg/dl (70-99)
[2025-10-24] MEDS: NOVOLOG FLEXPEN-LOW RESISTANCE 1 UNITS SC (08:20)
--- NOTE | 2025-10-24 09:05 | PTCARENOTE ---
Rec'd pt A,A+Ox3, offers no complaints, R radial dsg D+I, + radial pulse. Pt reports that his R wrist feels fine, no c/o pain.
[2025-10-24] MEDS: TRANDATE 100 MG PO (09:15)
[2025-10-24 10:16] VITALS: BP 166/79
--- NOTE | 2025-10-24 11:29 | W.PN.CARDCBS ---
Addendum entered and electronically signed by Eugenio Khan DO 10/24/25 12:21:
I saw and examined the patient.
The Camp Nurse's note was reviewed and I agree with the note.
Comment:
Plan:
BP improved and remains stable from cardiovascular standpoint
Meds reviewed with pt
Patient will follow-up regarding blood work taken for secondary hypertension workup, currently pending
Remains in sinus. Cont Eliquis
Follow up arranged.
Original Note:
Today's Communication / Plan
-
Cardiac medications for discharge:
Lisinopril 40 mg daily
Norvasc 10 mg daily
Chlorthalidone 25 mg daily
Hydralazine 25 mg 3 times daily
Eliquis 5 mg twice daily
Labetalol 100 mg twice daily
OP cardiac follow up arranged
Impression / Plan
-
PCP: Dr. Ortega
Floor Manager: Dr. Santos
Impression:
Presented with chest pain
Paroxysmal atrial fibrillation w/ RVR, newly diagnosed, back in SR
HTN emergency
Elevated troponin, suspected nonischemic myocardial injury due to above
Dilated aortic root
HLD
DM2
Former tobacco abuse
History of kidney stones
Fatty liver
Obesity
Echo 09/17/2024: EF 55-60%, mild cLVH, no significant valvular disease
Echo 10/21/2025: EF 55-60%, no significant valvular disease
Plan:
- Presented with chest pain and hypertensive emergency
- Chest/abdomen/pelvis CTA from 10/21 reviewed with no evidence of aortic dissection, aneurysm, ulcer
- underwent echo with results as above, preserved EF, results reviewed with patient 10/23
- trop peaked at 0.066. underwent cath 10/22 with nonobstructive CAD, results reviewed with patient 10/23. suspected nonischemic myocardial injury due to HTN
- IV nitro caused migraine headache. patient started on labetalol 100mg BID with improvement in BP trends, continue in addition to lisinopril 40 mg daily, Norvasc 10 mg daily, chlorthalidone 25 mg daily, hydralazine 25 mg 3 times daily
- in SB with HRs in 50-60s on review of tele overnight.
- consider secondary HTN work up
- discussed dietary modification and weight loss
- also had afib on arrival, maintaining sinus overnight on review of tele. initiated on eliquis 5mg BID
- TSH WNL
- CVE with LDL 61. hgbA1c 6.2%.
- OP cardiac follow up arranged
- ok for DC to home
- d/w nursing
HPI: Robert is a 55 year old male with PMH of uncontrolled HTN, HLD, former tobacco abuse, and dilated aortic root. Presented to [facility] ER for evaluation of chest pain and significantly elevated BP. He was recently seen in the cardiology office on
10/09/2025 for elevated BPs and chest pain. In office, was markedly hypertensive with BP 250/120 and admitted to chest pain while walking into office, so was sent to ER. He was evaluated and had troponin within the normal range x2 and BP improved
after medication, so he was started on higher dose lisinopril 40mg daily and metoprolol succinate 25mg daily. He states since that time, he has continued w/ exertional chest discomfort and blood pressures have remained elevated. Yesterday he did
some snow blowing, but did not feel he over exerted himself. When he woke up this AM, he noticed fairly significant chest pain while at rest with radiation into his back as well as shortness of breath, diaphoresis, and dizziness. He checked his BP
and it was significantly elevated at 254/168 and pain continued to worsen over 20 minutes, prompting ER evaluation. Also noted feeling 'weird' heart rhythm and came to ER for evaluation. On arrival, noted to be in rapid atrial fibrillation which was
a new diagnosis. Given ongoing severe chest pain, he was given morphine and his pain has since subsided. Pain free at this time. Noted to be hypoxic in ER with pulse ox 88% and he was placed on 2L NC. Initial troponin within normal range but
detectable at 0.029. He converted to SR and remains in SR at this time.
Progress Note - Floor Manager
Subjective
Date of Service: October 24, 2025
No complaints. Eager for discharge
Objective
Labs:
10/24/25 04:13
10/24/25 04:12
Labs
Hgb 15.6 g/dL (13.0-18.0) 10/24/25 04:13
Hct 44.8 % (39.0-52.0) 10/24/25 04:13
Plt Count 160 10^3/uL (130-400) 10/24/25 04:13
PT 13.3 Sec (11.4-14.6) 10/21/25 08:24
INR 1.00 10/21/25 08:24
APTT Cancelled 10/22/25 13:00
Sodium 138 mmol/L (135-145) 10/24/25 04:12
Potassium 3.7 mmol/L (3.5-5.1) 10/24/25 04:12
BUN 16 mg/dl (9-20) 10/24/25 04:12
Creatinine 1.0 mg/dL (0.7-1.3) 10/24/25 04:12
Glucose 128 mg/dl (70-99) H 10/24/25 04:12
Troponins
10/22/25 10/23/25
05:56 10:42
Troponin I 0.066 H* 0.053 H*
Vital Signs and I&O:
Vital Signs
Temp Pulse Resp BP Pulse Ox
97.7 F 55 20 166/79 97
10/24/25 07:30 10/24/25 10:16 10/24/25 07:30 10/24/25 10:16 10/24/25 08:35
Vital Signs
Temp Pulse Resp BP Pulse Ox
97.7 F 55 20 166/79 97
10/24/25 07:30 10/24/25 10:16 10/24/25 07:30 10/24/25 10:16 10/24/25 08:35
Intake & Output
10/22/25 10/23/25 10/24/25 10/25/25
07:59 07:59 07:59 07:59
Intake Total 442 / 442 1360 / 2320 1919
Balance 442 / 442 1360 / 2320 1919
Physical Exam
Physical Exam
GEN: No distress, awake, alert, oriented x3
HEENT: supple, anicteric, mmm, EOMI
LUNGS: CTA bilaterally, no wheezes/rales
CV: Reg, S1/S2, no murmur
ABD: soft, BS+, NT/ND
EXT: No cyanosis, clubbing, edema
NEURO: Gross non-focal
SKIN: Warm, pink, dry. No rash
--- NOTE | 2025-10-24 12:03 | W.PN.HOSP.TC ---
Addendum entered and electronically signed by Christopher Benito MD 10/24/25 14:03:
Non-ischemic myocardial injury
Original Note:
Today's Communication/Plan
-
DC home
Close outpatient follow-up
Assessment / Plan
Assessment / Plan
General: Well Developed, Well Nourished, No Apparent Distress and Obese
HEENT: NormoCephalic, Moist mucous membranes, Atraumatic and Oxygen
Respiratory: Clear
Cardiac: S1/S2 and Bradycardia; No Murmur or Rub
GI: Soft, Non Tender, Non Distended and Normal Bowel Sounds; No Organomegaly
Rectal: Deferred by Provider
Musculoskeletal: No Clubbing, No Cyanosis and No Edema
Skin: No Rash
Neuro: Awake, Alert, Oriented, AO x 3, No Motor Deficits and Nonfocal/grossly intact
Psych: Calm
#Hypertension emergency
#Primary hypertension remains uncontrolled
Continue with lisinopril 40 mg
Norvasc dose increased to 10 mg daily
Labetalol has been added per cardiology. Heart rate has improved
Chlorthalidone has been started
Hydralazine 25 mg 3 times daily added
Plasma metanephrines pending
Probably will require multiple agents for blood pressure control
Blood pressure improving. Patient understand to keep log of blood pressure at home and follow-up with primary doctor and cardiology for further management.
Recommended stress reduction and weight loss. Patient seems motivated to lose weight.
#Elevated troponin with concern for ACS
Status post aspirin
Continue with heparin infusion
LDL at 61. A1c 6.2.
Hold metformin
Echo EF of 55 to 60%. Mild LVH. Diastolic function indeterminate.
Plan for cardiac catheterization showing nonobstructive CAD
#Paroxysmal atrial fibrillation with RVR
Bradycardia resolved.
Started on Eliquis.
#Diabetes mellitus type 2
Hold metformin
Insulin sliding scale and Accu-Cheks
Check A1c 6.2
#Small distal infrarenal abdominal aortic aneurysm ?uncontrolled BP
CTA abdomen/pelvis noted
#Hepatic steatosis
#Obesity likely due to excess calories
History of tobacco abuse with Emphysematous lung changes noted on CT scan
OP pulm f/u recommended
#Gout
allopurinol
DVT ppx-Eliquis
Full code
More than 30 minutes spent in discharge including
Final examination of the patient
Summarizing hospital stay
Instructions for continuing care to all relevant caregivers
Preparation of discharge records, prescriptions, and referral forms
Total time spent (in minutes): 53
Anticipated Discharge: Today
Subjective/Interval History
-
Date of Service: October 24, 2025
Feeling better
Objective Data
-
Labs:
Laboratory Results
10/24/25 10/24/25
04:12 04:13
WBC 8.2
Hgb 15.6
Hct 44.8
Plt Count 160
Sodium 138
Potassium 3.7
Chloride 105
Carbon Dioxide 24
BUN 16
Creatinine 1.0
Glucose 128 H
Calcium 9.1
Vital Signs:
Vital Signs
Temp Pulse Resp BP Pulse Ox
97.6 F 55 16 166/79 95
10/24/25 11:39 10/24/25 10:16 10/24/25 11:39 10/24/25 10:16 10/24/25 11:39
I&O
10/23/25 10/24/25 10/25/25
06:59 06:59 06:59
Intake Total 1360 / 1360 1919
Balance 1360 / 1360 1919
--- NOTE | 2025-10-24 12:11 | W.DCSUMMARY ---
Discharge Summary
Discharge Data
Date of Admission: 10/21/25
Date of Discharge: 10/24/25
-
Pending Results: No
Hospital Course
55-year-old male past medical history of obesity due to excess calories, hypertension, diabetes mellitus was presented with headache and chest pain. Patient was found to have hypertension emergency upon admission. Patient was also found to have
new onset of atrial fibrillation with rapid ventricular response. Patient converted to normal sinus rhythm. Patient was started heparin infusion. Patient with mild troponin elevation. Patient underwent cardiac catheterization was found
nonobstructive coronary artery disease. Heparin drip was transitioned to p.o. Eliquis. Patient with uncontrolled hypertension requiring IV nitroglycerin infusion. Patient was started on multiple antihypertensive medication including Norvasc 10
mg, chlorthalidone 25 mg, hydralazine, labetalol. Blood pressure improved. Echocardiogram was performed with EF of 55 to 60%. Mild LVH. Patient was counseled on stress reduction and weight loss. Patient be discharged home with outpatient
follow-up with cardiology and primary doctor.
Discharge Plan
-
Patient Disposition: Home (Routine Discharge)
Discharge Diagnosis/Procedures: Hypertension emergency
Elevated troponin status post cardiac catheterization
Paroxysmal atrial fibrillation with rapid ventricular response
Diet: Low Cholesterol
Driving Restrictions: No driving for 24 hours
Activity Restrictions/Additional Instructions:
Keep daily log of your blood pressures at home to review with your primary care provider and or cardiology in follow up.
Please take medications as prescribed/recommended and follow up with primary care provider and/or other healthcare provider involved in your care for refills and/or further adjustment to your medication regimen as necessary. �
Instructions: High blood pressure in adults, Atrial fibrillation (DC)
Stand Alone Forms: DC Instructions- Cath/EP Lab
Referrals:
Robert Edwards MD [Family Provider, Internal Medicine] - in less than 1 week
Alma Ward PA-C [Specified Professional Personl, Cardiology] - 11/11/25 1:40 pm
Referral Note: Follow-up plasma metanephrines levels with cardiology in the office
Additional Discharge Medication Instructions: Hold Metformin post procedure, resume on Tuesday morning
Aspirin, Toprol-XL, naproxen potassium citrate was discontinued
Prescriptions:
New
hydralazine 25 mg Tablet
25 mg PO TID Qty: 90 0RF
chlorthalidone 25 mg Tablet
25 mg PO DAILY Qty: 30 0RF
amlodipine 10 mg Tablet
10 mg PO DAILY Qty: 30 0RF
labetalol 100 mg Tablet
100 mg PO BID 30 Days Qty: 60 0RF
Eliquis 5 mg Tablet
5 mg PO BID Qty: 60 0RF
Continued
allopurinol 100 MG tablet
100 mg PO DAILY
lisinopril 40 mg tablet
40 mg PO DAILY Qty: 30 0RF
Held
metformin 500 mg Tablet
500 mg PO BID
Hold Instructions: Resume on 10/25/25.
Discontinued
aspirin 81 mg Tablet,Delayed Release (Dr/Ec)
162 mg PO DAILYPRN PRN (Reason: chest pain)
potassium citrate 15 mEq Tablet Extended Release
15 meq PO DAILY
metoprolol succinate [Toprol XL] 25 mg tablet extended release 24 hr
25 mg PO DAILY Qty: 30 0RF
naproxen sodium [Aleve] 220 mg Tablet
220 mg PO [id number] PRN (Reason: mild pain)
aspirin 81 mg Tablet
81 mg PO DAILY
Discharge Orders:
Discharge Patient (As Directed); Ordered 10/24/25
Ordered By: Christopher Benito
Care Plan Goals
Care Plan Goals:
Problem: Readiness for enhanced knowledge related to diagnosis and treatment plan
Goal: Understand your diagnosis and treatment plan needs, including medications if applicable.
Instructions: Know your diagnosis, underlying causes and treatment plan options, including medications if applicable. Consult with your health care team to learn about your diagnosis and treatment plan, including medications if applicable.
Discharge Date and Time
Print Language: OCCITAN
--- NOTE | 2025-10-24 13:32 | PTCARENOTE ---
D/c instructions reviewed with Pt, he expressed understanding.
--- NOTE | 2025-10-24 13:49 | PN.CDI ---
CDI
- -
CDI:
Physician Documentation Request
Admit Date: 10/21/25 12:48
Dear Doctor,
Please review the following and provide your response in the progress notes.
Clinical Indicators:
Pt admitted with Hypertensive emergency
10/22 Media Executive report:
'CONCLUSIONS
1. No obstructive coronary artery disease.
2. LVEDP of 20 mmHg in the setting of systemic hypertension.'
10/24 Cardiology PN: ' HTN emergency
Elevated troponin, suspected nonischemic myocardial injury due to above'
10/24 Hospitalist PN: ' Elevated troponin with concern for ACS'
Due to potential conflicting documentation, could you clarify in the progress notes, the appropriate diagnosis, if significant, that supports the above abnormalities and additional evaluation, monitoring and/or treatment rendered:
Non-ischemic myocardial injury
ACS
Other
Use of terms such as suspected, likely, concern for, or probable (associated with a specific diagnosis that is being evaluated, monitored, or treated as if it exists) are acceptable and can be coded in the inpatient setting, when documented at the
time of discharge.
Thank you,
Jennifer Leung RN, BSN
CDI Specialist
[place] [employer]
Please use your independent medical judgment in providing your response.
== END 2025-10-24 13:20 | disposition home or self-care (01) | DRG 287 ==
LOC: IVU 12:48
PROVIDERS: Physician Assistant; ADMITTING PHYSICIAN Hospitalist; CONSULT PHYSICIAN Internal Medicine Cardiovascular Disease; EMERGENCY PHYSICIAN Emergency Medicine; FAMILY PHYSICIAN Internal Medicine
PROC: 4A023N7 Measurement of Cardiac Sampling and Pressure, Left Heart, Percutaneous Approach (ICD-10-PCS; 2025-10-22)
PROC: B2111ZZ Fluoroscopy of Multiple Coronary Arteries using Low Osmolar Contrast (ICD-10-PCS; 2025-10-22)
DX: I16.1 Hypertensive emergency (principal); I5A Non-ischemic myocardial injury (non-traumatic); F17.200 Nicotine dependence, unspecified, uncomplicated; E66.09 Other obesity due to excess calories; Z68.36 Body mass index [BMI] 36.0-36.9, adult; I10 Essential (primary) hypertension; I48.0 Paroxysmal atrial fibrillation; I70.0 Atherosclerosis of aorta; E11.9 Type 2 diabetes mellitus without complications; M10.9 Gout, unspecified; Z79.01 Long term (current) use of anticoagulants; Z79.82 Long term (current) use of aspirin; Z79.899 Other long term (current) drug therapy
CPT/HCPCS: 71275; 74174; 80048; 80053; 80061; 82384; 82962; 83036; 83735; 83835; 84443; 84484; 85025; 85610; 85730; 86850; 86900; 86901; 93005; 93306; 93458; 96374; 99152; 99153; 99291; C1769; Q9950; Q9967